=== PATIENT | female | born 1965 | race Caucasian/White ===

== ENCOUNTER 2016-12-10 13:10 | Inpatient (IN) | payer MEDICAID, OTHER ==
[~2016-12-10] VITALS: Ht 175.3 cm; Wt 97.3 kg
[~2016-12-10 13:10] MED LIST: ATOR40TA49 PO; B COTAB6; HYDRO25 PO; MELA5TAB8 OR; NOVO7030P2 SQ; NOVOLOGP2 SQ; OMEG100037; PRIN5TAB PO; PROZ20CA11 PO; QUET200XR PO
[2016-12-10 13:12] VITALS: BP 220/98; PULSE 93; RESP 20; TEMP 97.7; O2SAT 98
--- NOTE | 2016-12-10 13:29 | PD ---
Physical Exam Date Seen by Provider: December 10, 2016 Time Seen by Provider: 13:25 Narrative 51 YOWF WITH L DIABETIC FOOT ULCER. BGL 279. CONCERN OVER WORSEN INFECTED ULCER. PAIN 10/10 H/O CAD AND CABG. NO CP, NO N/V. NO F/C. VS NOTED wating for bed asignment Data Data Last Documented VS Vital Signs Date Time Temp Pulse Resp B/P Pulse Ox O2 Delivery O2 Flow Rate FiO2 12/10/16 13:12 97.7 93 20 220/98 98 Room Air [facility] Medical Record Reviewed: No Supervised Visit with STEVE: Demario Stanley December 10, 2016 13:29
[2016-12-10] MEDS ORDERED: CLINDAMYCIN INJ 900 MG in SODIUM CHLORIDE 0.9% INJ 100 ML IV ONE (15:15)
--- NOTE | 2016-12-10 15:25 | PD ---
HPI Chief Complaint: Skin Problem Time Seen by Provider: 14:54 Travel History International Travel<30 days: No Contact w/Intl Traveler<30days: No Traveled to known affect area: No History of Present Illness HPI 51-year-old female arrives with pain about the left foot. She has undergone amputation of the second and third digits of the left foot evidently due to osteomyelitis and cellulitis previously. In the middle portion of the left foot there is an open wound draining some clear discharge and surrounded by fibrinous exudate. The wounds are tender. She's had no fever. She states the pain is 10 over 10. Amputations were done by a editing internship in [place]. Similar prior episodes led to a diagnosis of osteomyelitis. PFSH Past Medical History Blood Disorders: No Anxiety: Yes Depression: Yes Cancer: No Cardiovascular Problems: Yes (QUAD BYPASS MAR 2016) High Cholesterol: Yes Diabetes: Yes Patient Takes Glucophage: No Diminished Hearing: No Endocrine: Yes Gastrointestinal Disorders: No Genitourinary: No Headaches: No Hypertension: Yes Immune Disorder: No Implanted Vascular Access Dvce: No Musculoskeletal: No Neurologic: No Psychiatric: Yes (Reported history of depression, anxiety and personality disorders) Reproductive: No Respiratory: No Seizures: No ?: Not Menopausal: Yes : 4 Para: 3 Dilation and Curettage (D&C): Yes Past Surgical History Section: Yes (X 1) Coronary Artery Bypass Graft: Yes (2016) Gynecologic Surgery: Yes (C section) Other Surgery: Yes (lt foot diabetic ulcer) Social History Alcohol Use: No Tobacco Use: Yes (4-5 pd) Substance Use: Yes (current marijuana, hx cocaine abuse (10 years ago), etoh ( 5 years ago)) Allergies-Medications (Allergen,Severity, Reaction): Coded Allergies: Abilify (Verified Allergy, Severe, 12/10/16) Buspar (Verified Allergy, Severe, Nausea/Vomiting, 12/10/16) Sulfa (Verified Allergy, Unknown, 12/10/16) Benadryl (Verified Adverse Reaction, Severe, 12/10/16) PATIENT STATES." IT HAS OPPOSITE AFFECT. IT MAKES ME SPEEDY, MORE AWAKE. IT MAKES MY SCALP FEEL TINGLY." PATIENT STATES "I DON'T TAKE ANITHISTAMINES BECAUSE THEY HAVE AN OPPOSITE EFFECT THAN WHAT THEY'REV SUPPOSE TO HAVE." Uncoded Allergies: ALOE VERA (Adverse Reaction, Severe, RASH, 10/01/09) Reported Meds & Prescriptions Reported Meds & Active Scripts Active Reported [place]-3-6-9 ([place] 3 Fatty Acids-[place] 6 FA) 1 Cap Cap 1 Cap PO TID Novolin 70-30 Inj (Insulin Human Isoph/Insulin Regular) 1,000 Unit/10 Ml Vial 15 Units SQ HS Metoprolol Tartrate 25 Mg Tab 12.5 Mg PO BID [place] Carbonate ER ([place] Carbonate) 450 Mg Tab 450 Mg PO BID Levothyroxine (Levothyroxine Sodium) 50 Mcg Tab 50 Mcg PO DAILY Levaquin (Levofloxacin) 750 Mg Tab 750 Mg PO DAILY Humulin N Inj (Insulin Human NPH) 1,000 Unit/10 Ml Vial 30 Units SQ DAILY Diflucan (Fluconazole) 200 Mg Tab 200 Mg PO DAILY Gabapentin 100 Mg Cap 200 Mg PO QID Ferrous Sulfate 325 Mg Tab 325 Mg PO BID Lexapro (Escitalopram Oxalate) 10 Mg Tab 10 Mg PO DAILY Colace (Docusate Sodium) 100 Mg Cap 100 Mg PO BID Plavix (Clopidogrel Bisulfate) 75 Mg Tab 75 Mg PO DAILY Lipitor (Atorvastatin Calcium) 40 Mg Tab 40 Mg PO HS Aspirin Adult Low Strength (Aspirin) 81 Mg Tabdr 81 Mg PO DAILY Review of Systems Except as stated in HPI: all other systems reviewed are Neg Skin: Positive Other (wound) Physical Exam Narrative GENERAL: 51 yo F, WNWD, pleasant SKIN: Warm and dry. HEAD: Atraumatic. Normocephalic. EYES: Pupils equal and round. No scleral icterus. No injection or drainage. ENT: No nasal bleeding or discharge. Mucous membranes pink and moist. NECK: Trachea midline. No JVD. CARDIOVASCULAR: Regular rate and rhythm. RESPIRATORY: No accessory muscle use. Clear to auscultation. Breath sounds equal bilaterally. GASTROINTESTINAL: Abdomen soft, non-tender, nondistended. Hepatic and splenic margins not palpable. MUSCULOSKELETAL: Extremities without clubbing, cyanosis, or edema. No obvious deformities. NEUROLOGICAL: Awake and alert. No obvious cranial nerve deficits. Motor grossly within normal limits. L foot s/p amputation 2nd and 3rd digits with minimal tenderness, fibrinous exudate and clear discharge; no purulent discharge. WIthin the middle portion of the L mid foot there is approx 2x wide by 5cm long area of similar wound fibrinous exudate clear discharge and minimal tenderness. There is no gross erythematous change or warmth in the area. PSYCHIATRIC: Appropriate mood and affect; insight and judgment normal. Data Data Last Documented VS Vital Signs Date Time Temp Pulse Resp B/P Pulse Ox O2 Delivery O2 Flow Rate FiO2 12/10/16 13:12 97.7 93 20 220/98 98 Room Air Vital signs reviewed Orders Basic Metabolic Panel (Bmp) (12/10/16 15:05) Complete Blood Count With Diff (12/10/16 15:05) Blood Culture (12/10/16 15:05) Wound Culture And Gram Stain (12/10/16 15:05) Iv Access Insert/Monitor (12/10/16 15:05) Wound Care (12/10/16 15:05) Clindamycin Inj (Cleocin Inj) (12/10/16 15:15) Foot, Complete ([id number]) (12/10/16 ) Sodium Chlor 0.9% 1000 Ml Inj (Ns 1000 M (12/10/16 15:30) Acetamin-Hydrocod 325-5 Mg ([place] 5-325 (12/10/16 15:45) Admit Order (Ed Use Only) (12/10/16 16:43) Labs Laboratory Tests Test 12/10/16 15:10 White Blood Count 5.0 TH/MM3 Red Blood Count 4.02 MIL/MM3 Hemoglobin 11.7 GM/DL Hematocrit 35.2 % Mean Corpuscular Volume 87.7 FL Mean Corpuscular Hemoglobin 29.0 PG Mean Corpuscular Hemoglobin 33.1 % Concent Red Cell Distribution Width 16.6 % Platelet Count 296 TH/MM3 Mean Platelet Volume 8.9 FL Neutrophils (%) (Auto) 52.6 % Lymphocytes (%) (Auto) 34.5 % Monocytes (%) (Auto) 8.8 % Eosinophils (%) (Auto) 2.7 % Basophils (%) (Auto) 1.4 % Neutrophils # (Auto) 2.7 TH/MM3 Lymphocytes # (Auto) 1.7 TH/MM3 Monocytes # (Auto) 0.4 TH/MM3 Eosinophils # (Auto) 0.1 TH/MM3 Basophils # (Auto) 0.1 TH/MM3 CBC Comment DIFF FINAL Differential Comment Sodium Level 137 MEQ/L Potassium Level 4.0 MEQ/L Chloride Level 101 MEQ/L Carbon Dioxide Level 29.9 MEQ/L Anion Gap 6 MEQ/L Blood Urea Nitrogen 18 MG/DL Creatinine 0.94 MG/DL Estimat Glomerular Filtration 62 ML/MIN Rate Random Glucose 301 MG/DL Calcium Level 9.8 MG/DL MDM Medical Decision Making Medical Screen Exam Complete: Yes Emergency Medical Condition: Yes Differential Diagnosis Osteomyelitis, cellulitis, abscess Narrative Course CBC & BMP Diagram 12/10/16 15:10 FOOT XRAY: possible osteomyelitis distal second metatarsal d/w Dr Harris. 2 wound cultures obtained. Clindamycin started. Diagnosis Primary Impression: Wound, open, foot Qualified Code: S91.302D - Wound, open, foot, left, subsequent encounter Admitting Information Admitting Physician Requests: Admit Evens Olson MD December 10, 2016 15:25
[2016-12-10] MEDS ORDERED: SODIUM CHLOR 0.9% 1000 ML INJ 1,000 ML IV ONE (15:30)
[2016-12-10] MEDS ORDERED: ACETAMINOPHEN/HYDROcodone 325 MG/5 MG TAB PO ONE (15:45)
[2016-12-10 15:46] LABS: AUTOMATED NEUTROPHIL # 2.7 TH/MM3 (1.8-7.7); BASOPHIL # 0.1 TH/MM3 (0-0.2); BASOPHIL % 1.4 % (0.0-2.0); EOSINOPHIL # 0.1 TH/MM3 (0-0.4); EOSINOPHIL % 2.7 % (0.0-4.0); HEMATOCRIT 35.2 % (35.0-46.0); HEMO FLAGS DIFF FINAL; LYMPH % 34.5 % (9.0-44.0); LYMPHOCYTE # 1.7 TH/MM3 (1.0-4.8); MEAN CELL VOLUME 87.7 FL (80.0-100.0); MEAN CORPUSCULAR HGB CONC 33.1 % (32.0-36.0); MONO % 8.8 % (0.0-8.0); NEUT % 52.6 % (16.0-70.0); PLATELET COUNT 296 TH/MM3 (150-450); RED BLOOD COUNT 4.02 MIL/MM3 (4.00-5.30); RED CELL DISTRIBUTION WIDTH 16.6 % (11.6-17.2)
--- NOTE | 2016-12-10 15:55 | RADRPT ---
EXAM DATE/TIME: 12/10/2016 15:47 [facility] COMPARISON: No previous studies available for comparison. INDICATIONS : Ulceration on plantar surface of left foot for two months MEDICAL HISTORY : Diabetes mellitus type II. SURGICAL HISTORY : 2nd and 3rd digit amputation ENCOUNTER: Initial ACUITY: 2 months PAIN SCORE: 10/10 LOCATION: Left plantar surface FINDINGS: There has been previous resection of the second and third digits. There is mild irregu larity about the head of the second metatarsal. Tarsals are intact. CONCLUSION: 1. Evidence for a previous surgery. 2. Osteomyelitis distal second metatarsal cannot be excluded. Francisco Torres MD FACR on December 10, 2016 at 15:51 Board Certified Radiologist. This report was verified electronically.
[2016-12-10 16:09] LABS: BICARBONATE 29.9 MEQ/L (21.0-32.0)
[2016-12-10] MEDS ORDERED: ASPI1TAB91 PO (16:33)
[2016-12-10] MEDS ORDERED: METO25TA3 PO (16:33)
[2016-12-10] MEDS ORDERED: OMEG1200 PO (16:33)
[2016-12-10] MEDS ORDERED: PLAV75TA29 PO (16:33)
[2016-12-10] MEDS ORDERED: GABA100C4 PO (16:33)
[2016-12-10] MEDS ORDERED: COLA100C3 PO (16:33)
[2016-12-10] MEDS ORDERED: LEXA10TA PO (16:33)
[2016-12-10] MEDS ORDERED: NOVO7030P2 SQ (16:33)
[2016-12-10] MEDS ORDERED: LITH450T PO (16:33)
[2016-12-10] MEDS ORDERED: LEVA750T PO (16:33)
[2016-12-10] MEDS ORDERED: FERR325T PO (16:33)
[2016-12-10] MEDS ORDERED: LIPI40TA PO (16:33)
[2016-12-10] MEDS ORDERED: INSU100V3 SQ (16:33)
[2016-12-10] MEDS ORDERED: LEVO50TA4 PO (16:33)
[2016-12-10] MEDS ORDERED: DIFL200T PO (16:33)
[2016-12-10] MEDS: SODIUM CHLOR 0.9% 1000 ML INJ 1,000 ML IV SCH (16:52)
--- NOTE | 2016-12-10 16:55 | HHI.HP ---
HPI Service [facility] Primary Care Physician No Primary Care Physician Admission Diagnosis Diabetic L Foot Wound; Poss L Foot Osteo Diagnoses: Chief Complaint: pain in her feet Travel History International Travel<30 Days: No Contact w/Intl Traveler <30 Da: No Traveled to Known Affected Are: No History of Present Illness 51-year-old female with past medical history of diabetes, hypertension, CAD, hyperlipidemia, chronic foot ulcers, probably noncompliant with medications into the emergency room for evaluation of left foot diabetic ulcers getting for the last 2 months . She also reports associated fevers. Follows with podiatry as outpatient and she is also taking Levaquin by mouth. Since pain is worse since yesterday, she noticed some discharge the third digit of the left foot, also order is worse. She has undergone amputation of the second and third digits of the left foot evidently due to osteomyelitis and cellulitis previously. In the middle portion of the left foot there is an open wound draining some clear discharge and surrounded by fibrinous exudate. The wounds are tender. She's had no fever. She states the pain is 10 over 10. Amputations were done by a internet technology manager in [place]. Similar prior episodes led to a diagnosis of osteomyelitis. Denies chest pain, shortness of breath, nausea, diaphoresis, lightheadedness, patient's. No abdominal pain. Has normal bowel movements. Review of Systems Except as stated in HPI: all other systems reviewed are Neg Past Family Social History Past Medical History Diabetes, hypertension, hyperlipidemia, coronary artery disease, chronic foot ulcers Past Surgical History Quadruple bypass 2016 Left second digit amputation with incision and drainage of foot Allergies: Coded Allergies: Abilify (Verified Allergy, Severe, 12/10/16) Buspar (Verified Allergy, Severe, Nausea/Vomiting, 12/10/16) Sulfa (Verified Allergy, Unknown, 12/10/16) Benadryl (Verified Adverse Reaction, Severe, 12/10/16) PATIENT STATES." IT HAS OPPOSITE AFFECT. IT MAKES ME SPEEDY, MORE AWAKE. IT MAKES MY SCALP FEEL TINGLY." PATIENT STATES "I DON'T TAKE ANITHISTAMINES BECAUSE THEY HAVE AN OPPOSITE EFFECT THAN WHAT THEY'REV SUPPOSE TO HAVE." Uncoded Allergies: ALOE VERA (Adverse Reaction, Severe, RASH, 10/01/09) Family History Hypertension Social History Smoking currently for 5 cigarettes per day used to smoke 1 pack per day Denies alcohol use or illicit drug use Physical Exam Vital Signs Vital Signs Date Time Temp Pulse Resp B/P Pulse Ox O2 Delivery O2 Flow Rate FiO2 12/10/16 13:12 97.7 93 20 220/98 98 Room Air Physical Exam GENERAL: This is a well-nourished, well-developed patient, in no apparent distress. SKIN: No rashes, ecchymoses or lesions. Cool and dry. HEAD: Atraumatic. Normocephalic. No temporal or scalp tenderness. EYES: Pupils equal round and reactive. Extraocular motions intact. No scleral icterus. No injection or drainage. ENT: Nose without bleeding, purulent drainage or septal hematoma. Throat without erythema, tonsillar hypertrophy or exudate. Uvula midline. Airway patent. NECK: Trachea midline. No JVD or lymphadenopathy. Supple, nontender, no meningeal signs. CARDIOVASCULAR: Regular rate and rhythm without murmurs, gallops, or rubs. RESPIRATORY: Clear to auscultation. Breath sounds equal bilaterally. No wheezes , rales, or rhonchi. GASTROINTESTINAL: Abdomen soft, non-tender, nondistended. No hepato-splenomegaly , or palpable masses. No guarding. MUSCULOSKELETAL: There is a 2 cm lesion on the second amputated foot on the left red, with some discharge . Fissure on left plantar region . Vascular intact. Negative Homans sign bilaterally. NEUROLOGICAL: Awake and alert. Cranial nerves II through XII intact. Motor and sensory grossly within normal limits. Five out of 5 muscle strength in all muscle groups. Normal speech. Laboratory Laboratory Tests Test 12/10/16 15:10 White Blood Count 5.0 Red Blood Count 4.02 Hemoglobin 11.7 Hematocrit 35.2 Mean Corpuscular Volume 87.7 Mean Corpuscular Hemoglobin 29.0 Mean Corpuscular Hemoglobin 33.1 Concent Red Cell Distribution Width 16.6 Platelet Count 296 Mean Platelet Volume 8.9 Neutrophils (%) (Auto) 52.6 Lymphocytes (%) (Auto) 34.5 Monocytes (%) (Auto) 8.8 Eosinophils (%) (Auto) 2.7 Basophils (%) (Auto) 1.4 Neutrophils # (Auto) 2.7 Lymphocytes # (Auto) 1.7 Monocytes # (Auto) 0.4 Eosinophils # (Auto) 0.1 Basophils # (Auto) 0.1 CBC Comment DIFF FINAL Differential Comment Sodium Level 137 Potassium Level 4.0 Chloride Level 101 Carbon Dioxide Level 29.9 Anion Gap 6 Blood Urea Nitrogen 18 Creatinine 0.94 Estimat Glomerular Filtration 62 Rate Random Glucose 301 Calcium Level 9.8 Date/Time Procedure Status Source Growth 12/10/16 15:15 Aerobic Blood Culture Received Blood Peripheral Pending 12/10/16 15:15 Anaerobic Blood Culture Received Blood Peripheral Pending 12/10/16 15:10 Gram Stain Received Wound Foot Pending 12/10/16 15:10 Wound Culture Received Wound Foot Pending Result Diagram: 12/10/16 1510 12/10/16 1510 Imaging Last Impressions Foot X-Ray 12/10/16 0000 Signed Impressions: Service Date/Time: Saturday, December 10, 2016 15:47 - CONCLUSION: 1. Evidence for a previous surgery. 2. Osteomyelitis distal second metatarsal cannot be excluded. Francisco Torres MD FACR Assessment and Plan Assessment and Plan Pleasant 51-year-old female with Diabetic foot possible osteomyelitis Started Zosyn and vancomycin IV Consult podiatry for further evaluation Plan for MRI of the left foot Seen by podiatry Dr. Church possible surgery in 1 or 2 days Coronary artery disease. Continue home medications. She is taking Plavix and aspirin, podiatry to decide if holding these medications prior to surgery Hypertension. Uncontrolled. Restart home medications. Monitor and increase dose of home medications if needed. Vasotec IV as needed when necessary. Hydralazine by mouth as needed. Diabetes mellitus insulin-dependent. We'll check A1c. Diabetes seems is uncontrolled. Insulin sliding scale, Accu-Cheks Hyperlipidemia. Continue statin DVT prophylaxis Lovenox Discussed Condition With Patient, nurse, ED physician Physician Certification 2 Midnight Certification Type: Admission for Inpatient Services Order for Inpatient Services The services are ordered in accordance with Medicare regulations or non- Medicare payer requirements, as applicable. In the case of services not specified as inpatient-only, they are appropriately provided as inpatient services in accordance with the 2-midnight benchmark. Estimated LOS (days): 5 days is the estimated time the patient will need to remain in the hospital, assuming treatment plan goals are met and no additional complications. Post-Hospital Plan: Not yet determined Marine Harris MD December 10, 2016 16:55
[2016-12-10] MEDS ORDERED: Vancomycin Consult Pharmacy 1 EA OTHER SCH (17:00)
[2016-12-10] MEDS ORDERED: GLUCAGON 1 MG/ML VIAL OTHER PRN ×2 (17:00→19:30)
[2016-12-10] MEDS ORDERED: SODIUM CHLORIDE 0.9% FLUSH 10 ML FLUSH IV FLUSH PRN (17:00)
[2016-12-10] MEDS ORDERED: ACETAMINOPHEN 325 MG TAB PO PRN (17:00)
[2016-12-10] MEDS ORDERED: DEXTROSE 50% IN WATER 50 ML VIAL(D50) IV PUSH PRN ×2 (17:00→19:30)
[2016-12-10] MEDS ORDERED: ONDANSETRON HCL 4 MG/2 ML VIAL IVP PRN (17:00)
[2016-12-10] MEDS ORDERED: FATTY ACIDS OMEGA PO SCH (18:00)
[2016-12-10] MEDS ORDERED: OMEGA FA PO SCH (18:00)
[2016-12-10] MEDS: DOCUSATE SODIUM 100 MG CAP PO SCH (18:21)
[2016-12-10] MEDS: GABAPENTIN 100 MG CAP PO SCH ×2 (18:21→21:51)
[2016-12-10] MEDS: VANCOMYCIN INJ 1,000 MG in SODIUM CHLOR 0.9% 250 ML INJ 250 ML IV SCH (18:23)
[2016-12-10] MEDS: ENOXAPARIN SODIUM 40 MG/0.4 ML SYRINGE SQ SCH (18:23)
[2016-12-10 19:03] LABS: LDL CHOLESTEROL 159 MG/DL (0-99)
--- NOTE | 2016-12-10 19:17 | MB ---
cc: DANIELLE GONZALEZ DPM DATE OF CONSULTATION: 12/10/2016. REASON FOR CONSULTATION: Left foot ulcer, likely osteomyelitis second metatarsal. HISTORY OF PRESENT ILLNESS: This is a 51-year-old diabetic female with a history of left foot infection, ulcer and gangrene of the second digit. She is status post amputation from Dr. Callahan two months ago. The patient has been following along; however, has noticed increased redness, pain and swelling. She opted to follow up at [place] and she was not improving at [facility]. The patient is currently seen bedside. She takes diabetic medications but she is uninsured and she is not aware of her last hemoglobin A1c and she does not follow along with a primary care doctor. PAST MEDICAL HISTORY: Her past medical history is positive for: 1. Depression. 2. Anxiety. 3. Quadruple bypass March of 2016. 4. High cholesterol. 5. Diabetes with peripheral neuropathy. 6. Hypertension. PAST SURGICAL HISTORY: As previously stated: 1. Coronary artery bypass graft in 2016. 2. Left second digit amputation with incision and drainage of foot. SOCIAL HISTORY: The patient smokes four to five cigarettes per day. History of cocaine abuse ten years ago. Alcohol abuse five years ago and current marijuana. ALLERGIES: CODED ALLERGIES ARE: 1. ABILIFY. 2. BUSPAR. 3. SULFA. 4. BENADRYL. UNCODED ALLERGIES: 1. AGUSTIN VERA. REPORTED OUTPATIENT MEDICATIONS: Reviewed. It does not appear that she was on any antibiotics other than Diflucan. INPATIENT MEDICATIONS: The patient is receivin. Levaquin. 2. Vancomycin. 3. Zosyn. 4. Apparently received also clindamycin. PHYSICAL EXAMINATION: VITAL SIGNS: Temperature is 97.7, pulse rate is 93, respiratory rate is 16, blood pressure is 220/98. She is satting 98% on room air. GENERAL: This is an alert and oriented female seen bedside exhibiting nonlabored respirations. LEFT LOWER EXTREMITY: The left lower extremity is examined. There is noted be a fibrotic red serous draining wound at the level of the presumed second digit amputation site that appears to probe to joint capsule. At the plantar aspect of the foot, there is also a full-thickness wound that goes down to plantar fascia that has some granular tissue but overall it is mainly fibrotic. There is an irregular fissure of the posterior plantar heel but there is no drainage coming from the area. Sensation is significantly decreased below the patient's ankle. Sensation resumes proximal to the ankle. There is no crepitus or instability upon range of motion of digits forefoot, hindfoot or ankle. Pedal pulses are readily palpable. There is no obvious ulcer of the contralateral extremity. LABORATORY FINDINGS: White blood cell is 5, hemoglobin/hematocrit 11 and 35, platelet count is 296,000. Chem-7: Sodium is 137, potassium 4.0, chloride 101, CO2 is 29.9, BUN is 18, creatinine 0.94, random glucose is 301, hemoglobin A1c is pending. IMAGING STUDIES: Imaging findings are consistent with osteomyelitis of the second metatarsal head. MRI has been ordered. ASSESSMENT: Left diabetic foot ulcer with possible deeper infection osteomyelitis second metatarsal. PLAN: The plan is to await MRI to determine the extent of possible bone infection. I do feel the patient may need to be evaluated in greater detail via medicine and possibly cardiology before going under anesthesia given the cardiac history. The patient's blood pressure needs to be regulated as well as hyperglycemic control. I will attempt surgery within next one to two days but if she continues to have elevated blood pressure and poor glucose control, we may need optimize the patient before we move forward with a possible definitive surgical correction including possible second metatarsal resection. The patient's vascular status appears to be within normal limits but I do question her outpatient hyperglycemic control. We also need to discuss and address the patient's smoking for this inhibits wound healing directly. I will follow along with the patient within next one to two days pending MRI. MARY Stephenson/DRISS /6:51 PM /7:00 PM
[2016-12-10 20:00] VITALS: BP 146/67; PULSE 68; RESP 18; TEMP 97; O2SAT 100
[2016-12-10] MEDS ORDERED: DOCUSATE SODIUM 100 MG CAP PO SCH (21:00)
[2016-12-10] MEDS ORDERED: INSULIN HUMAN NPH/R 70/30 1,000 UNITS/10 ML VIAL SQ SCH (21:00)
[2016-12-10] MEDS: INSULIN ASPART SUPPLEMENTAL SCALE SQ SCH ×2 (21:00→21:54)
[2016-12-10 21:39] LABS: HEMOGLOBIN A1a 1.1 %; HEMOGLOBIN A1b 0.9 %; HEMOGLOBIN Ao 78.7 %; HEMOGLOBIN F 1.4 %; HEMOGLOBIN LA1C 3.9 %; HEMOGLOBIN P3 6.6 %
[2016-12-10] MEDS ORDERED: ACETAMINOPHEN/HYDROcodone 325 MG/5 MG TAB PO PRN (21:45)
[2016-12-10] MEDS ORDERED: ALPRAZolam 0.25 MG TAB PO ONE (21:45)
[2016-12-10] MEDS: ACETAMINOPHEN/HYDROcodone 325 MG/10 MG TAB PO PRN (21:50)
[2016-12-10] MEDS: FERROUS SULFATE 325 MG (65 MG ELEMENTAL IRON) TAB PO SCH (21:51)
[2016-12-10] MEDS: ATORVASTATIN 40 MG TAB PO SCH (21:51)
[2016-12-10] MEDS: METOPROLOL TARTRATE 25 MG TAB PO SCH (21:51)
[2016-12-10] MEDS: LITHIUM CARBONATE 450 MG CONTROLLED RELEASE TAB PO SCH (21:51)
[2016-12-10] MEDS: PIPERACIL-TAZO 4.5 GM PREMIX 100 ML IV SCH (21:52)
[2016-12-10] MEDS: SODIUM CHLORIDE 0.9% FLUSH 10 ML FLUSH IV FLUSH SCH (21:52)
--- NOTE | 2016-12-10 22:02 | RADRPT ---
EXAM DATE/TIME: 12/10/2016 20:00 [facility] COMPARISON: FOOT LEFT COMPLETE ([id number]), December 10, 2016, 15:47. INDICATIONS : Osteomyelitis. CONTRAST: 16 cc Omniscan (gadodiamide) IV MEDICAL HISTORY : Hypertension. Diabetes mellitus type 1. Hypercholesterolemia. SURGICAL HISTORY : section. CABG Lower extremity stent placement. 2nd and 3rd digit removed from left loot. ENCOUNTER: Subsequent ACUITY: 2 months PAIN SCORE: 3/10 LOCATION: Left foot TECHNIQUE: Multiplanar, multisequence MRI examination was performed without contrast and after the intravenous a dministration of gadolinium. FINDINGS: There is abnormal marrow signal involving the second and third metatarsal head and neck regions consi stent with osteomyelitis. There is adjacent soft tissue cellulitis and abscess at previous amputation site. There is extensive destructive change and marrow signal change involving the calcaneus, also c onsistent with osteomyelitis associated with what appears to be a penetrating ulcer on the plantar as pect of the heel. CONCLUSION: Osteomyelitis involving the second at the end third metatarsals distally as well as the calcaneus. Christofer Dunbar MD on December 10, 2016 at 21:55 Board Certified Radiologist. This report was verified electronically.
[2016-12-10] MEDS ORDERED: GADODIAMIDE PF 287 MG/ML 5 ML VIAL (for RAD MRI) IV ONE (22:52)
[2016-12-10 23:53] VITALS: BP 147/69; PULSE 75; RESP 19; TEMP 96; O2SAT 100
[2016-12-11] MEDS: VANCOMYCIN INJ 1,000 MG in SODIUM CHLOR 0.9% 250 ML INJ 250 ML IV SCH (04:56)
[2016-12-11] MEDS: PIPERACIL-TAZO 4.5 GM PREMIX 100 ML IV SCH ×5 (04:56→23:19)
[2016-12-11] MEDS: ACETAMINOPHEN/HYDROcodone 325 MG/10 MG TAB PO PRN ×2 (04:57→08:44)
[2016-12-11] MEDS: LEVOTHYROXINE SODIUM 50 MCG TAB PO SCH (04:57)
[2016-12-11] MEDS: DOCUSATE SODIUM 100 MG CAP PO SCH ×2 (04:57→16:39)
[2016-12-11] MEDS: SODIUM CHLOR 0.9% 1000 ML INJ 1,000 ML IV SCH ×3 (04:57→20:39)
[2016-12-11] MEDS: INSULIN ASPART SUPPLEMENTAL SCALE SQ SCH ×6 (06:34→20:41)
[2016-12-11 07:40] LABS: ALKALINE PHOSPHATASE 114 U/L (45-117); ALT (GPT) 25 U/L (10-53); ANION GAP 6 MEQ/L (5-15); AST (GOT) 29 U/L (15-37); BICARBONATE 25.8 MEQ/L (21.0-32.0); BLOOD UREA NITROGEN 16 MG/DL (7-18); CHLORIDE 107 MEQ/L (98-107); GLOMERULAR FILTRATION RATE 75 ML/MIN (>89); POTASSIUM 4.3 MEQ/L (3.5-5.1); SODIUM (NA) 139 MEQ/L (136-145); TOTAL BILIRUBIN ADULT 0.3 MG/DL (0.2-1.0)
--- NOTE | 2016-12-11 07:52 | PD.POD ---
Subjective Pain score: 2 Remarks Rest well, pain is intermittent Past Med/Surg/Social History Social History Smoking Status: Current Every Day Smoker Objective Vital Signs Vital Signs Date Time Temp Pulse Resp B/P Pulse Ox O2 Delivery O2 Flow Rate FiO2 12/10/16 23:53 96.0 75 19 147/69 100 12/10/16 20:00 97.0 68 18 146/67 100 12/10/16 17:03 16 12/10/16 13:12 97.7 93 20 220/98 98 Room Air Coded Allergies: Abilify (Verified Allergy, Severe, 12/10/16) Buspar (Verified Allergy, Severe, Nausea/Vomiting, 12/10/16) Sulfa (Verified Allergy, Unknown, 12/10/16) Benadryl (Verified Adverse Reaction, Severe, 12/10/16) PATIENT STATES." IT HAS OPPOSITE AFFECT. IT MAKES ME SPEEDY, MORE AWAKE. IT MAKES MY SCALP FEEL TINGLY." PATIENT STATES "I DON'T TAKE ANITHISTAMINES BECAUSE THEY HAVE AN OPPOSITE EFFECT THAN WHAT THEY'REV SUPPOSE TO HAVE." Fentanyl (Verified Adverse Reaction, Severe, 12/10/16) hallucications Uncoded Allergies: ALOE VERA (Adverse Reaction, Severe, RASH, 10/01/09) Medications and IVs Administered Medications Medications (Trade) Dose Ordered Sig/Vanesa Route PRN Reason Start Time Stop Time Status Last Admin Dose Admin Sodium Chloride (NS 1000 ml Inj) 1,000 ml @ 100 mls/hr Q10H IV 12/10/16 16:52 12/11/16 04:57 Sodium Chloride (NS Flush) 2 ml BID IV FLUSH 12/10/16 21:00 12/10/16 21:52 Docusate Sodium (Colace) 100 mg Q12H PO 12/10/16 17:00 12/11/16 04:57 Enoxaparin Sodium 40 mg 40 mg Q24H SQ 12/10/16 18:00 12/10/16 18:23 Vancomycin HCl 1000 mg/Sodium Chloride 250 ml @ 250 mls/hr Q12H IV 12/10/16 18:00 12/11/16 04:56 Piperacillin Sod/ Tazobactam Sod (Zosyn 4.5 Gm Premix) 100 ml @ 200 mls/hr Q6H IV 12/10/16 18:00 12/11/16 04:56 Atorvastatin Calcium (Lipitor) 40 mg HS PO 12/10/16 21:00 12/10/16 21:51 Ferrous Sulfate (Ferrous Sulfate) 325 mg BID PO 12/10/16 21:00 12/10/16 21:51 Gabapentin (Neurontin) 200 mg QID PO 12/10/16 18:00 12/10/16 21:51 Insulin Human Isoph/Insulin Regular (NovoLIN 70/30 INJ) 15 units HS SQ 12/10/16 21:00 12/10/16 21:54 Levothyroxine Sodium (Synthroid) 50 mcg DAILY@06 PO 12/11/16 06:00 12/11/16 04:57 [place] Carbonate (Eskalith Sr) 450 mg BID PO 12/10/16 21:00 12/10/16 21:51 Metoprolol Tartrate (Lopressor) 12.5 mg BID PO 12/10/16 21:00 12/10/16 21:51 Acetaminophen/ Hydrocodone Bitart ([place] 10-325 Mg) 1 tab Q4H PRN PO paion 512/10/16 21:45 12/11/16 04:57 Other Results Laboratory Tests Test 12/10/16 15:10 White Blood Count 5.0 TH/MM3 Red Blood Count 4.02 MIL/MM3 Hemoglobin 11.7 GM/DL Hematocrit 35.2 % Mean Corpuscular Volume 87.7 FL Mean Corpuscular Hemoglobin 29.0 PG Mean Corpuscular Hemoglobin 33.1 % Concent Red Cell Distribution Width 16.6 % Platelet Count 296 TH/MM3 Mean Platelet Volume 8.9 FL Neutrophils (%) (Auto) 52.6 % Lymphocytes (%) (Auto) 34.5 % Monocytes (%) (Auto) 8.8 % Eosinophils (%) (Auto) 2.7 % Basophils (%) (Auto) 1.4 % Neutrophils # (Auto) 2.7 TH/MM3 Lymphocytes # (Auto) 1.7 TH/MM3 Monocytes # (Auto) 0.4 TH/MM3 Eosinophils # (Auto) 0.1 TH/MM3 Basophils # (Auto) 0.1 TH/MM3 CBC Comment DIFF FINAL Differential Comment Laboratory Tests Test 12/10/16 12/11/16 15:10 06:15 Sodium Level 137 MEQ/L 139 MEQ/L Potassium Level 4.0 MEQ/L 4.3 MEQ/L Chloride Level 101 MEQ/L 107 MEQ/L Carbon Dioxide Level 29.9 MEQ/L 25.8 MEQ/L Anion Gap 6 MEQ/L 6 MEQ/L Blood Urea Nitrogen 18 MG/DL 16 MG/DL Creatinine 0.94 MG/DL 0.80 MG/DL Estimat Glomerular Filtration 62 ML/MIN 75 ML/MIN Rate Random Glucose 301 MG/DL 211 MG/DL Hemoglobin A1c 8.8 % Calcium Level 9.8 MG/DL 9.2 MG/DL Triglycerides Level 64 MG/DL Cholesterol Level 236 MG/DL LDL Cholesterol 159 MG/DL HDL Cholesterol 64.0 MG/DL Cholesterol/HDL Ratio 3.68 RATIO Total Bilirubin 0.3 MG/DL Aspartate Amino Transf 29 U/L (AST/SGOT) Alanine Aminotransferase 25 U/L (ALT/SGPT) Alkaline Phosphatase 114 U/L Total Protein 6.8 GM/DL Albumin 3.0 GM/DL Microbiology Date/Time Procedure Status Source Growth 12/10/16 15:10 Aerobic Blood Culture Received Blood Peripheral Pending 12/10/16 15:10 Anaerobic Blood Culture Received Blood Peripheral Pending 12/10/16 15:10 Gram Stain Received Wound Foot Pending 12/10/16 15:10 Wound Culture Received Wound Foot Pending 12/10/16 15:15 Aerobic Blood Culture Received Blood Peripheral Pending 12/10/16 15:15 Anaerobic Blood Culture Received Blood Peripheral Pending Last 72 hours Impressions Foot X-Ray 12/10/16 0000 Signed Impressions: Service Date/Time: Saturday, December 10, 2016 15:47 - CONCLUSION: 1. Evidence for a previous surgery. 2. Osteomyelitis distal second metatarsal cannot be excluded. Francisco Torres MD FACR Foot MRI 12/10/16 0000 Signed Impressions: Service Date/Time: Saturday, December 10, 2016 20:00 - CONCLUSION: Osteomyelitis involving the second at the end third metatarsals distally as well as the calcaneus. Christofer Dunbar MD Physical Exam Remarks LEFT LOWER EXTREMITY: The left lower extremity is examined. There is noted be a fibrotic red serous draining wound at the level of the presumed second digit amputation site that appears to probe to joint capsule. At the plantar aspect of the foot, there is also a full-thickness wound that goes down to plantar fascia that has some granular tissue but overall it is mainly fibrotic. There is an irregular fissure of the posterior plantar heel but there is no drainage coming from the area. Sensation is significantly decreased below the patient's ankle. Sensation resumes proximal to the ankle. There is no crepitus or instability upon range of motion of digits forefoot, hindfoot or ankle. Pedal pulses are readily palpable. There is no obvious ulcer of the contralateral extremity. Assessment & Plan A/P Left foot ulcer OM 2 3 metatarsal and calcaneus. MRI is concerning for near entire involvement of the calcaneus as well distal metatarsals. Given this extent a calcanectomy is indicated however will leave the patient unable to walk, BKA is the likely best option joint terminal attack controller for the patient. I plan on biopsying the calcaneus and removing the the infected metatarsals for now however if calc comes back positive, I will likely recommend BKA for better joint terminal attack controller function. Patient wished to not go for BKA but understands may be needed. NPO after MN for surgery tomorrow. Hold plavix Avery Church DPM December 11, 2016 07:51
[2016-12-11 08:00] VITALS: BP 128/65; PULSE 79; RESP 19; TEMP 95.9; O2SAT 99
[2016-12-11] MEDS: LEVOFLOXACIN 750 MG TAB PO SCH (08:33)
[2016-12-11] MEDS: FERROUS SULFATE 325 MG (65 MG ELEMENTAL IRON) TAB PO SCH ×2 (08:33→20:38)
[2016-12-11] MEDS: ESCITALOPRAM OXALATE 10 MG TAB PO SCH (08:35)
[2016-12-11] MEDS: METOPROLOL TARTRATE 25 MG TAB PO SCH ×2 (08:35→20:38)
[2016-12-11] MEDS: GABAPENTIN 100 MG CAP PO SCH ×4 (08:35→20:39)
[2016-12-11] MEDS: SODIUM CHLORIDE 0.9% FLUSH 10 ML FLUSH IV FLUSH SCH ×2 (08:36→20:38)
[2016-12-11] MEDS: LITHIUM CARBONATE 450 MG CONTROLLED RELEASE TAB PO SCH ×2 (08:36→20:38)
[2016-12-11] MEDS: ASPIRIN EC 81 MG TABEC PO SCH (08:36)
[2016-12-11] MEDS: FLUCONAZOLE 200 MG TAB PO SCH (08:43)
[2016-12-11] MEDS ORDERED: CLOPIDOGREL 75 MG TAB PO SCH (09:00)
[2016-12-11] MEDS ORDERED: INSULIN HUMAN NPH SQ SCH (09:00)
--- NOTE | 2016-12-11 09:16 | HHI.PR ---
Subjective Remarks Says pain is not controlled by norco and wants something else. She si also very anxious and crying at times. Says she would not like to have amputation however she is considering it if necessary. Patient Also is telling me is very anxious and she is taking valium 10 mg at home. patient is asking for anxiety meds, says she is also having depression and severe anxiety. Will also consult psych . Otherwise no fever or chills overnight. No n/v/d/c. Objective Vitals Vital Signs Date Time Temp Pulse Resp B/P Pulse Ox O2 Delivery O2 Flow Rate FiO2 12/11/16 08:00 95.9 79 19 128/65 99 12/10/16 23:53 96.0 75 19 147/69 100 12/10/16 20:00 97.0 68 18 146/67 100 12/10/16 17:03 16 12/10/16 13:12 97.7 93 20 220/98 98 Room Air I/O 12/10/16 12/10/16 12/10/16 12/11/16 12/11/16 12/11/16 07:00 15:00 23:00 07:00 15:00 23:00 Intake Total 708 ml 1170 ml Output Total 1000 ml Balance 708 ml 170 ml Intake Oral 360 ml 240 ml IV Total 348 ml 930 ml Output Urine Total 1000 ml # Voids 1 1 # Bowel Movements 0 0 Result Diagram: 12/10/16 1510 12/11/16 0615 Imaging Last Impressions Foot X-Ray 12/10/16 0000 Signed Impressions: Service Date/Time: Saturday, December 10, 2016 15:47 - CONCLUSION: 1. Evidence for a previous surgery. 2. Osteomyelitis distal second metatarsal cannot be excluded. Francisco Torres MD FACR Foot MRI 12/10/16 0000 Signed Impressions: Service Date/Time: Saturday, December 10, 2016 20:00 - CONCLUSION: Osteomyelitis involving the second at the end third metatarsals distally as well as the calcaneus. Christofer Dunbar MD Objective Remarks GENERAL: This is a well-nourished, well-developed patient, in no apparent distress. SKIN: No rashes, ecchymoses or lesions. Cool and dry. HEAD: Atraumatic. Normocephalic. No temporal or scalp tenderness. EYES: Pupils equal round and reactive. Extraocular motions intact. No scleral icterus. No injection or drainage. ENT: Nose without bleeding, purulent drainage or septal hematoma. Throat without erythema, tonsillar hypertrophy or exudate. Uvula midline. Airway patent. NECK: Trachea midline. No JVD or lymphadenopathy. Supple, nontender, no meningeal signs. CARDIOVASCULAR: Regular rate and rhythm without murmurs, gallops, or rubs. RESPIRATORY: Clear to auscultation. Breath sounds equal bilaterally. No wheezes , rales, or rhonchi. GASTROINTESTINAL: Abdomen soft, non-tender, nondistended. No hepato-splenomegaly , or palpable masses. No guarding. MUSCULOSKELETAL: There is a 2 cm lesion on the second amputated foot on the left red, with some discharge . Fissure on left plantar region . Vascular intact. Negative Homans sign bilaterally. NEUROLOGICAL: Awake and alert. Cranial nerves II through XII intact. Motor and sensory grossly within normal limits. Five out of 5 muscle strength in all muscle groups. Normal speech. A/P Assessment and Plan Pleasant 51-year-old female with Diabetic foot possible osteomyelitis. Left foot ulcer OM 2 3 metatarsal and calcaneus. Started Zosyn and vancomycin IV Consult podiatry , appreciate recommendations Dr Church following MRI is concerning for near entire involvement of the calcaneus as well distal metatarsals. BKA is the likely best option welder apprentice arc for the patient per podiatry. Patient wished to not go for BKA but understands may be needed. Plan on biopsying the calcaneus and removing the the infected metatarsals for now however if calc comes back positive, BKA for better welder apprentice arc function is recommended by podiatry. Seen by podiatry Dr. Church. Keep NPO after MN, plan for surgery 12/12/16. Hold plavix. Coronary artery disease. Continue home medications. She is taking Plavix and aspirin, podiatry to decide if holding these medications prior to surgery Hypertension. Uncontrolled. Restart home medications. Monitor and increase dose of home medications if needed. Vasotec IV as needed when necessary. Hydralazine by mouth as needed. Diabetes mellitus insulin-dependent. We'll check A1c. Diabetes seems is uncontrolled. Insulin sliding scale, Accu-Cheks Hyperlipidemia. Continue statin Depression / anxiety now unstable. Restart home meds . Add ativan for anxiety/. Consult psych DVT prophylaxis Lovenox Discussed Condition With Patient, nurse Marine Harris MD December 11, 2016 09:16
[2016-12-11] MEDS ORDERED: LORazepam 1 MG TAB PO PRN (10:45)
[2016-12-11 12:00] VITALS: BP 144/64; PULSE 65; RESP 18; TEMP 96.6; O2SAT 100
--- NOTE | 2016-12-11 15:39 | PD.CONS ---
Provisional Diagnosis Admission Date December 10, 2016 at 16:45 [place] I. Schizoaffective disorder bipolar type f 20.0, anxiety disorder associated with panic attacks FO6.4 History of Present Illness Service Psychiatry Consult Requested By Attending Lamont Reason for Consult Assessment Primary Care Physician No Primary Care Physician HPI Patient is a 51 white female who did remind me when I introduced myself to her that I help care for her a number of years ago at the at [facility]. Patient admitted for treatment of peripheral diabetic issues with her feet possibility of amputations. Patient continues to see a clinician in the [facility] for treatment of her mental health issues that include mood, anxiety, and panic. She states she is on lithium and Celexa the when necessary Valium. States she has been cooperative successful being at home with her family little way of relapses, denying alcohol or drug use with this. She states she has done well with when necessary Valium elected to be placed on that instead of when necessary Ativan. Patient denies suicidality homicidality voices or visions patient is alert oriented calm cooperative and quite pleasant with me showing good insight into her issues. Thus I would recommend that it is okay by me to switch her from the when necessary Ativan to Valium 10 mg by mouth daily when necessary anxiety/ panic. Thanks for consult was sent off the present time Review of Systems Constitutional: DENIES: Diaphoretic episodes, Fatigue, Fever, Weight gain, Weight loss, Chills, Dizziness, Change in appetite, Night Sweats Endocrine: DENIES: Abnorml menstrual pattern, Heat/cold intolerance, Polydipsia , Polyuria, Polyphagia Eyes: DENIES: Blurred vision, Diplopia, Eye inflammation, Eye pain, Vision loss , Photosensitivity, Double Vision Ears, nose, mouth, throat: DENIES: Tinnitus, Hearing loss, Vertigo, Nasal discharge, Oral lesions, Throat pain, Hoarseness, Ear Pain, Running Nose, Epistaxis, Sinus Pain, Toothache, Odynophagia Respiratory: DENIES: Apneas, Cough, Snoring, Wheezing, Hemoptysis, Sputum production, Shortness of breath Cardiovascular: DENIES: Chest pain, Palpitations, Syncope, Dyspnea on Exertion , PND, Lower Extremity Edema, Orthopnea, Claudication Gastrointestinal: DENIES: Abdominal pain, Black stools, Bloody stools, Constipation, Diarrhea, Nausea, Vomiting, Difficulty Swallowing, Anorexia Genitourinary: DENIES: Abnormal vaginal bleeding, Dysmenorrhea, Dyspareunia, Sexual dysfunction, Urinary frequency, Urinary incontinence, Urgency, Hematuria , Dysuria, Nocturia, Vaginal discharge Musculoskeletal: DENIES: Joint pain, Muscle aches, Stiffness, Joint Swelling, Back pain, Neck pain Integumentary: DENIES: Abnormal pigmentation, Pruritus, Rash, Nail changes, Breast masses, Breast skin changes, Nipple discharge Hematologic/lymphatic: DENIES: Bruising, Lymphadenopathy Immunologic/allergic: DENIES: Eczema, Urticaria Neurologic: DENIES: Abnormal gait, Headache, Localized weakness, Paresthesias, Seizures, Speech Problems, Tremor, Poor Balance Psychiatric: COMPLAINS OF: Anxiety Past Family Social History Coded Allergies: Abilify (Verified Allergy, Severe, 12/10/16) Buspar (Verified Allergy, Severe, Nausea/Vomiting, 12/10/16) Sulfa (Verified Allergy, Unknown, 12/10/16) Benadryl (Verified Adverse Reaction, Severe, 12/10/16) PATIENT STATES." IT HAS OPPOSITE AFFECT. IT MAKES ME SPEEDY, MORE AWAKE. IT MAKES MY SCALP FEEL TINGLY." PATIENT STATES "I DON'T TAKE ANITHISTAMINES BECAUSE THEY HAVE AN OPPOSITE EFFECT THAN WHAT THEY'REV SUPPOSE TO HAVE." Fentanyl (Verified Adverse Reaction, Severe, 12/10/16) hallucications Uncoded Allergies: ALOE VERA (Adverse Reaction, Severe, RASH, 10/01/09) Past Medical History C MedSurg Reported Medications [place] 3 Fatty Acids-[place] 6 FA ([place]-3-6-9)1 Cap Cap1 Cap PO TID 12/10/16 Insulin Human Isophane-Regular 70-30 Inj (Novolin 70-30 Inj)1,000 Unit/10 Ml Vial15 Units SQ HS Ref 0 12/10/16 Metoprolol Tartrate 25 Mg Tab12.5 Mg PO BID #60 TAB Ref 0 12/10/16 [place] Carbonate ER 450 Mg Rde242 Mg PO BID Ref 0 12/10/16 Levothyroxine 50 Mcg Tab50 Mcg PO DAILY #30 TAB Ref 0 12/10/16 Levofloxacin (Levaquin)750 Mg Vyp511 Mg PO DAILY Ref 0 12/10/16 Insulin Human NPH Inj (Humulin N Inj)1,000 Unit/10 Ml Vial30 Units SQ DAILY # 10 ML Ref 0 12/10/16 Fluconazole (Diflucan)200 Mg Xpo247 Mg PO DAILY Ref 0 12/10/16 Gabapentin 100 Mg Rvm154 Mg PO QID #90 CAP Ref 0 12/10/16 Ferrous Sulfate 325 Mg Rty739 Mg PO BID #30 TAB Ref 0 12/10/16 Escitalopram (Lexapro)10 Mg Tab10 Mg PO DAILY #30 TAB Ref 0 12/10/16 Docusate Sodium (Colace)100 Mg Pcf893 Mg PO BID #60 CAP Ref 0 12/10/16 Clopidogrel (Plavix)75 Mg Tab75 Mg PO DAILY #30 TAB Ref 0 12/10/16 Atorvastatin (Lipitor)40 Mg Tab40 Mg PO HS #30 TAB Ref 0 12/10/[address] (Aspirin Adult Low Strength)81 Mg Tabdr81 Mg PO DAILY 12/10/16 Current Medications Medications (Trade) Dose Ordered Sig/Vanesa Route Start Time Stop Time Status Last Admin (NS 1000 ml Inj) 1,000 ml @ 100 mls/hr Q10H IV 12/10/16 16:52 12/11/16 11:08 (NS Flush) 2 ml UNSCH PRN IV FLUSH 12/10/16 17:00 (NS Flush) 2 ml BID IV FLUSH 12/10/16 21:00 12/10/16 21:52 (Tylenol) 650 mg Q4H PRN PO 12/10/16 17:00 (Zofran Inj) 4 mg Q6H PRN IVP 12/10/16 17:00 (Colace) 100 mg Q12H PO 12/10/16 17:00 12/11/16 04:57 (Milk Of Magnesia Liq) 30 ml Q12H PRN PO 12/10/16 17:00 Enoxaparin Sodium 40 mg 40 mg Q24H SQ 12/10/16 18:00 12/10/16 18:23 Pharmacy Profile Note 0 ml @ 0 mls/hr UNSCH OTHER 12/10/16 17:00 (Zosyn 4.5 Gm Premix) 100 ml @ 200 mls/hr Q6H IV 12/10/16 18:00 12/11/16 11:07 (Ecotrin Ec) 81 mg DAILY PO 12/11/16 09:00 (Lipitor) 40 mg HS PO 12/10/16 21:00 12/10/16 21:51 (Lexapro) 10 mg DAILY PO 12/11/16 09:00 12/11/16 08:35 (Ferrous Sulfate) 325 mg BID PO 12/10/16 21:00 12/11/16 08:33 (Diflucan) 200 mg DAILY PO 12/11/16 09:00 12/11/16 08:43 (Neurontin) 200 mg QID PO 12/10/16 18:00 12/11/16 11:09 (Levaquin) 750 mg DAILY PO 12/11/16 09:00 12/11/16 08:33 (Synthroid) 50 mcg DAILY@06 PO 12/11/16 06:00 12/11/16 04:57 (Eskalith Sr) 450 mg BID PO 12/10/16 21:00 12/11/16 08:36 (Lopressor) 12.5 mg BID PO 12/10/16 21:00 12/11/16 08:35 (D50w (Vial) Inj) 25 ml UNSCH PRN IV PUSH 12/10/16 17:00 (Glucagon Inj) 1 mg UNSCH PRN OTHER 12/10/16 17:00 (D50w (Vial) Inj) 25 ml UNSCH PRN IV PUSH 12/10/16 19:30 (Glucagon Inj) 1 mg UNSCH PRN OTHER 12/10/16 19:30 Miscellaneous Information SPECIFIC LAB TO BE DOM... ONCE ONCE .XX 12/13/16 04:45 12/13/16 04:46 (Vancomycin Inj/ NS 250 ml Inj) 262.5 ml @ 262.5 mls/ hr Q12H IV 12/11/16 17:00 (Ativan) 1 mg Q8H PRN PO 12/11/16 10:45 12/11/16 11:09 (Roxicodone) 5 mg Q4H PRN PO 12/11/16 10:45 (Roxicodone) 10 mg Q4H PRN PO 12/11/16 10:45 12/11/16 11:08 Family History Unknown at this time Social History Patient lives with [facility] Patient's Strengths (min. 2) Patient verbal cooperative irritable [facility] Physical Exam Please see med [facility] Vital Signs Vital Signs Date Time Temp Pulse Resp B/P Pulse Ox O2 Delivery O2 Flow Rate FiO2 12/11/16 12:00 96.6 65 18 144/64 100 12/10/16 13:12 Room Air I/O 12/10/16 12/10/16 12/10/16 07:59 15:59 23:59 Intake Total 708 ml Balance 708 ml Mental Status Examination Alert oriented white female lying calmly in bed cooperative with me with good eye contact reactive with occasional small smile Appearance Clean neat Orientation: x3 Memory: Unremarkable Thought Process: Logical Thought Content: Unremarkable Language [place] [employer] Fair Suicidal Ideation: No Previous Suicide Attempts: No Homicidal Ideation: No Previous Homicide Attempts: No Insight: Fair Judgment: WNL Affect: Other (good range and intensity) Mood: Euthymic Motor Activity: Abnormal gait-specify (second. 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 Okay by psych for discharge or medically clear and stable follow-up psychiatrically with the clinician of the community will sign off the present time Discharge Planning To be determined by treatment team Request HC Surrog/Guard Advoc?: No Problem Qualifiers (1) Schizoaffective disorder: Qualified Code: F25.0 - Schizoaffective disorder, bipolar type Christofer Delatorre MD December 11, 2016 15:39
[2016-12-11 16:00] VITALS: BP 139/67; PULSE 67; RESP 17; TEMP 97.2; O2SAT 98
[2016-12-11] MEDS: VANCOMYCIN INJ 1,250 MG in SODIUM CHLOR 0.9% 250 ML INJ 250 ML IV SCH (16:37)
[2016-12-11] MEDS: ENOXAPARIN SODIUM 40 MG/0.4 ML SYRINGE SQ SCH (18:00)
[2016-12-11 20:00] VITALS: BP 141/64; PULSE 67; RESP 18; TEMP 97.4; O2SAT 100
[2016-12-11] MEDS: ATORVASTATIN 40 MG TAB PO SCH (20:38)
[2016-12-11] MEDS ORDERED: LACTATED RINGER'S 1000 ML IV PRN (21:30)
[2016-12-11] MEDS ORDERED: CHLORHEXIDINE GLUCONATE 2 % 1 PACK (2 CLOTHS) TOPICAL PRN (21:30)
[2016-12-11] MEDS ORDERED: POVIDONE IODINE 5% (ANTISEPSIS KIT) 4 APPLICATIONS EACH NARE PRN (21:30)
[2016-12-11] MEDS ORDERED: SODIUM CHLORID 0.9% 500 ML IV PRN (21:30)
[2016-12-11] MEDS ORDERED: INSULIN HUMAN REGULAR 1,000 UNITS/10 ML VIAL SQ PRN (21:30)
[2016-12-11 23:58] VITALS: BP 152/69; PULSE 61; RESP 18; TEMP 97.5; O2SAT 98
[2016-12-12] MEDS: PIPERACIL-TAZO 4.5 GM PREMIX 100 ML IV SCH ×4 (04:40→23:42)
[2016-12-12] MEDS: DOCUSATE SODIUM 100 MG CAP PO SCH ×2 (04:40→16:46)
[2016-12-12] MEDS: VANCOMYCIN INJ 1,250 MG in SODIUM CHLOR 0.9% 250 ML INJ 250 ML IV SCH ×2 (04:40→16:44)
[2016-12-12] MEDS: LEVOTHYROXINE SODIUM 50 MCG TAB PO SCH (04:40)
[2016-12-12] MEDS: INSULIN ASPART SUPPLEMENTAL SCALE SQ SCH ×4 (06:34→20:55)
[2016-12-12 08:00] VITALS: BP 120/60; PULSE 83; RESP 17; TEMP 98.4; O2SAT 96
[2016-12-12] MEDS: METOPROLOL TARTRATE 25 MG TAB PO SCH ×2 (08:36→20:51)
[2016-12-12] MEDS: LEVOFLOXACIN 750 MG TAB PO SCH (08:37)
[2016-12-12] MEDS: FLUCONAZOLE 200 MG TAB PO SCH (08:37)
[2016-12-12] MEDS: FERROUS SULFATE 325 MG (65 MG ELEMENTAL IRON) TAB PO SCH ×2 (08:37→20:51)
[2016-12-12] MEDS: ESCITALOPRAM OXALATE 10 MG TAB PO SCH (08:37)
[2016-12-12] MEDS: ASPIRIN EC 81 MG TABEC PO SCH (08:38)
[2016-12-12] MEDS: LITHIUM CARBONATE 450 MG CONTROLLED RELEASE TAB PO SCH ×2 (08:38→20:51)
[2016-12-12] MEDS: GABAPENTIN 100 MG CAP PO SCH ×4 (08:38→20:51)
[2016-12-12] MEDS: SODIUM CHLORIDE 0.9% FLUSH 10 ML FLUSH IV FLUSH SCH ×2 (08:39→20:51)
[2016-12-12] MEDS: SODIUM CHLOR 0.9% 1000 ML INJ 1,000 ML IV SCH ×2 (08:39→16:49)
[2016-12-12] MEDS ORDERED: MIDAZOLAM HCL 2 MG/2 ML VIAL ONE (09:32)
[2016-12-12] MEDS ORDERED: ACETAMINOPHEN 1000 MG/100 ML VIAL IV ONE (09:32)
[2016-12-12] MEDS ORDERED: BUPIVACAINE HCL PF 0.5% 30 ML VIAL ONE (09:55)
[2016-12-12] MEDS ORDERED: MORPHINE SULFATE 4 MG/ML INJ ONE ×2 (10:04→10:43)
[2016-12-12] MEDS ORDERED: DO NOT ADM ANY ANTICOAGULANT DRUGS PRN (11:06)
--- NOTE | 2016-12-12 11:12 | HHI.PR ---
Immediate Post Op Note Procedure Date: December 12, 2016 Pre Op Diagnosis: left foot 2 3 metatarsal and calcaneus OM, plantar ulcer. Post Op Diagnosis: same Surgeon: Avery Meléndez Pocket Closer(s): scrub Procedure: Left foot incision bone cortex calcaneus (3 seperate areas) , 2 3 metatarsal head resection, ulcer debridement and wound closure Findings: see op dictation Complications: None Specimen(s) removed: 1. posterior inferior calc, 2. posterior superior calc, 3. STJ calc, 4. 2 met, 5. 3 met head- all for path R/O OM. 1. calc bn cx for mirco, 2. 2 and 3 metatarsals for bn cx Estimated blood loss: 30 mL Anesthesia: General, Local Drains: None Fluids: see anethesia IVF Tourniquet time (min at mmHg) esmark ankle approx 30 min Patient to: Other Patient Condition: Fair Implant/Devices: SEE IMPLANT LOG (if applicable) Date/Time of Procedure: SEE SURGICAL CARE RECORD Avery MeléndezM December 12, 2016 11:12
[2016-12-12 12:00] VITALS: BP 113/55; PULSE 66; RESP 18; TEMP 96.4; O2SAT 95
[2016-12-12] MEDS ORDERED: PROPOFOL 200 MG/20 ML AMP IV ONE (12:00)
[2016-12-12] MEDS ORDERED: ePHEDrine/NS 25 MG/5 ML SYR IV ONE (12:00)
[2016-12-12] MEDS ORDERED: LACTATED RINGER'S 1000 ML INJ 1,000 ML IV ONE (12:00)
[2016-12-12] MEDS ORDERED: ONDANSETRON HCL 4 MG/2 ML VIAL IV PUSH ONE (12:00)
[2016-12-12] MEDS: DIAZEPAM 10 MG TAB PO PRN (12:41)
--- NOTE | 2016-12-12 13:16 | HHI.PR ---
Subjective Remarks She is less anxious today , went ofr surgery, seen after surgery. Patient says pain is controlled by meds. No fever or chills. No n/v/d/c. Denies chest pain, sob, palpitations. Eating well. Objective Vitals Vital Signs Date Time Temp Pulse Resp B/P Pulse Ox O2 Delivery O2 Flow Rate FiO2 12/12/16 11:55 98.1 64 14 125/58 98 Room Air 12/12/16 11:45 64 14 125/58 98 Room Air 12/12/16 11:30 63 14 125/55 98 Room Air 12/12/16 11:15 65 14 124/57 100 Nasal Cannula 2 12/12/16 11:05 98.1 65 14 117/59 100 Nasal Cannula 2 12/12/16 08:00 98.4 83 17 120/60 96 12/11/16 23:58 97.5 61 18 152/69 98 12/11/16 20:00 97.4 67 18 141/64 100 12/11/16 16:00 97.2 67 17 139/67 98 I/O 12/11/16 12/11/16 12/11/16 12/12/16 12/12/16 12/12/16 06:59 14:59 22:59 06:59 14:59 22:59 Intake Total 1170 ml 1259 ml 1260 ml 975 ml 1504 ml Output Total 1000 ml 1050 ml 1600 ml 2800 ml Balance 170 ml 209 ml -340 ml -1825 ml 1504 ml Intake Oral 240 ml 460 ml 480 ml 240 ml IV Total 930 ml 799 ml 780 ml 735 ml 504 ml Other 1000 ml Output Urine Total 1000 ml 1050 ml 1600 ml 2800 ml # Voids 1 # Bowel Movements 0 0 0 0 Result Diagram: 12/10/16 1510 12/12/16 0650 Imaging Last Impressions Foot X-Ray 12/10/16 0000 Signed Impressions: Service Date/Time: Saturday, December 10, 2016 15:47 - CONCLUSION: 1. Evidence for a previous surgery. 2. Osteomyelitis distal second metatarsal cannot be excluded. Francisco Torres MD FACR Foot MRI 12/10/16 0000 Signed Impressions: Service Date/Time: Saturday, December 10, 2016 20:00 - CONCLUSION: Osteomyelitis involving the second at the end third metatarsals distally as well as the calcaneus. Christofer Dunbar MD Objective Remarks GENERAL: This is a well-nourished, well-developed patient, in no apparent distress. SKIN: No rashes, ecchymoses or lesions. Cool and dry. HEAD: Atraumatic. Normocephalic. No temporal or scalp tenderness. EYES: Pupils equal round and reactive. Extraocular motions intact. No scleral icterus. No injection or drainage. ENT: Nose without bleeding, purulent drainage or septal hematoma. Throat without erythema, tonsillar hypertrophy or exudate. Uvula midline. Airway patent. NECK: Trachea midline. No JVD or lymphadenopathy. Supple, nontender, no meningeal signs. CARDIOVASCULAR: Regular rate and rhythm without murmurs, gallops, or rubs. RESPIRATORY: Clear to auscultation. Breath sounds equal bilaterally. No wheezes , rales, or rhonchi. GASTROINTESTINAL: Abdomen soft, non-tender, nondistended. No hepato-splenomegaly , or palpable masses. No guarding. MUSCULOSKELETAL: Left foot is wrapped. Vascular intact. Negative Homans sign bilaterally. NEUROLOGICAL: Awake and alert. Cranial nerves II through XII intact. Motor and sensory grossly within normal limits. Five out of 5 muscle strength in all muscle groups. Normal speech. Procedures S/P Left foot incision bone cortex calcaneus (3 seperate areas) , 2 3 metatarsal head resection, ulcer debridement and wound closure on 12/12/[address] Church podiatry A/P Assessment and Plan Pleasant 51-year-old female with Diabetic foot possible osteomyelitis. Left foot ulcer OM 2 3 metatarsal and calcaneus. Started Zosyn and vancomycin IV Consult podiatry , appreciate recommendations Dr Church following S/P Left foot incision bone cortex calcaneus (3 seperate areas) , 2 3 metatarsal head resection, ulcer debridement and wound closure on 12/12/[address] Church podiatry MRI is concerning for near entire involvement of the calcaneus as well distal metatarsals. BKA is the likely best option fpc for the patient per podiatry. Patient wished to not go for BKA but understands may be needed. Plan on biopsying the calcaneus and removing the the infected metatarsals for now however if calc comes back positive, BKA for better fpc function is recommended by podiatry. Seen by podiatry Dr. Church. S/P surgery 12/12/16. Hold plavix for surgery restart when OK per surgeon. Coronary artery disease. Continue home medications. She is taking Plavix and aspirin, podiatry to decide if holding these medications prior to surgery Hypertension. Uncontrolled. Restart home medications. Monitor and increase dose of home medications if needed. Vasotec IV as needed when necessary. Hydralazine by mouth as needed. Diabetes mellitus insulin-dependent. We'll check A1c. Diabetes seems is uncontrolled. Insulin sliding scale, Accu-Cheks Hyperlipidemia. Continue statin Depression / anxiety now unstable. Restart home meds . Add ativan for anxiety/. Consult psych DVT prophylaxis Lovenox Discussed Condition With Patient, nurse Marine Harris MD December 12, 2016 13:16
[2016-12-12 16:00] VITALS: BP 111/53; PULSE 67; RESP 16; TEMP 97.2; O2SAT 97
[2016-12-12] MEDS: ENOXAPARIN SODIUM 40 MG/0.4 ML SYRINGE SQ SCH (16:47)
--- NOTE | 2016-12-12 17:39 | EKG ---
Date Performed: 12/11/2016 Time Performed: 22:11:44 PTAGE: 51 years EKG: Sinus rhythm POSSIBLE LEFT ATRIAL ENLARGEMENT POSSIBLE ANTERIOR MYOCARDIAL INFARCTION , OF INDETERMINATE AGE INFE RIOR MYOCARDIAL INFARCTION , OF INDETERMINATE AGE MODERATE T-WAVE ABNORMALITY, CONSIDER LATERAL ISCHE YOVANNY When compared to previous tracing, patient has developed an Increase in the lateral ST-T wave lara nges. Acute myocardial ischemia should be excluded clinically. The inferior ST elevation is also more pronounced. Myocardial ischemia or injury of the inferior wall should also be Considered and exclude d. ABNORMAL ECG PREVIOUS TRACING : 04/24/2014 16.45 DOCTOR: Christie Duran Interpretating Date/Time 12/12/2016 17:39:03
[2016-12-12 20:00] VITALS: BP 159/68; PULSE 76; RESP 18; TEMP 97.2; O2SAT 98
[2016-12-12] MEDS: ATORVASTATIN 40 MG TAB PO SCH (20:51)
[2016-12-12] MEDS: INSULIN DETEMIR 100 UNITS/ML VIAL SQ SCH (20:54)
[2016-12-12 23:48] VITALS: BP 117/59; PULSE 69; RESP 18; TEMP 99.2; O2SAT 96
[2016-12-13 04:00] VITALS: BP 114/53; PULSE 70; RESP 18; TEMP 98.3; O2SAT 94
[2016-12-13 04:26] LABS: AUTOMATED NEUTROPHIL # 4.1 TH/MM3 (1.8-7.7); BASOPHIL # 0.1 TH/MM3 (0-0.2); BASOPHIL % 0.9 % (0.0-2.0); EOSINOPHIL # 0.2 TH/MM3 (0-0.4); EOSINOPHIL % 3.8 % (0.0-4.0); HEMATOCRIT 32.6 % (35.0-46.0); HEMO FLAGS DIFF FINAL; LYMPH % 23.3 % (9.0-44.0); LYMPHOCYTE # 1.5 TH/MM3 (1.0-4.8); MEAN CELL VOLUME 87.8 FL (80.0-100.0); MEAN CORPUSCULAR HEMOGLOBIN 28.2 PG (27.0-34.0); MEAN CORPUSCULAR HGB CONC 32.1 % (32.0-36.0); MONO % 9.6 % (0.0-8.0); NEUT % 62.4 % (16.0-70.0); PLATELET COUNT 225 TH/MM3 (150-450); RED BLOOD COUNT 3.72 MIL/MM3 (4.00-5.30); RED CELL DISTRIBUTION WIDTH 16.1 % (11.6-17.2); WHITE BLOOD COUNT 6.6 TH/MM3 (4.0-11.0)
[2016-12-13] MEDS: VANCOMYCIN INJ 1,250 MG in SODIUM CHLOR 0.9% 250 ML INJ 250 ML IV SCH ×2 (04:36→16:42)
[2016-12-13] MEDS: SODIUM CHLOR 0.9% 1000 ML INJ 1,000 ML IV SCH ×2 (04:36→16:47)
[2016-12-13] MEDS: LEVOTHYROXINE SODIUM 50 MCG TAB PO SCH (04:37)
[2016-12-13] MEDS: PIPERACIL-TAZO 4.5 GM PREMIX 100 ML IV SCH ×4 (04:37→23:56)
[2016-12-13] MEDS: DOCUSATE SODIUM 100 MG CAP PO SCH ×2 (04:37→16:43)
[2016-12-13] MEDS ORDERED: PHARMACY ORDERED LAB ONE (04:45)
[2016-12-13 04:59] LABS: BICARBONATE 26.7 MEQ/L (21.0-32.0); MAGNESIUM 1.9 MG/DL (1.5-2.5)
[2016-12-13 05:03] LABS: POTASSIUM 4.4 MEQ/L (3.5-5.1)
[2016-12-13] MEDS: INSULIN ASPART SUPPLEMENTAL SCALE SQ SCH ×4 (06:19→20:35)
--- NOTE | 2016-12-13 07:11 | MP ---
cc: DANIELLE GONZALEZM DATE OF SURGERY 12/12/2016 PREOPERATIVE DIAGNOSIS Left foot second and third metatarsal as well as calcaneal osteomyelitis with plantar ulceration of foot. POSTOPERATIVE DIAGNOSIS Left foot second and third metatarsal as well as calcaneal osteomyelitis with plantar ulceration of foot. PROCEDURES PERFORMED 1. Left foot incision bone cortex calcaneus three separate areas. 2. Second metatarsal head resection. 3. Metatarsal head resection. 4. Ulcer debridement with ellipsed enclosure plantar foot wound greater than 3 cm. COMPLICATIONS None. SPECIMEN 1. Posterior-inferior calcaneus. 2. Posterior-superior calcaneus. 3. Subtalar joint calcaneus. 4. Second metatarsal head. 5. Third metatarsal head. These were all sent for pathological analysis - 1. Calcaneal bone culture sent for microbial analysis. 2. Second and third metatarsal bone for culture and microbial analysis. ESTIMATED BLOOD LOSS Approximately 30 mL. ANESTHESIA General with local. Ankle block was performed, approximately 10 cc of 0.25% Marcaine plain. TOURNIQUET TIME Esmarch wrapped about the patient's left ankle for approximately 30 minutes. PROGNOSIS Poor given the expansile extent of the calcaneal osteomyelitis. JUSTIFICATION FOR THE PROCEDURE This a 51-year-old female who is status post incision and drainage for severe foot infection and amputation of second and third digit from Dr. Ramírez from [facility]. The patient has not been healing and she is unhappy with the care and presented to [facility]. The foot appears to be viable; however, given the extent of the MRI, there is likely osteomyelitis of the near entire calcaneus, also involving the forefoot. I advised the patient that, if in fact the entire calcaneus appears to be infected, having a calcanectomy leads to keeping the extremity; however, it will be a nonfunctional extremity. Given that she has a history of forefoot ulceration and loss of digits, she will likely have severe hammertoes and eventually ulcerate the forefoot even if she heals her current issue, the ulceration of the forefoot and the plantar mid-foot. It is quite complex but the patient did not want to move forward with primary consultation for [id number]-[id number]-ddht amputation. We devised a plan to move forward with resection of osteomyelitic bone at the forefoot and to obtain three separate bone biopsies and cultures of the calcaneus to prove the extent of the osteomyelitis. No guarantees were given or implied regarding the outcome and the patient is well aware that she may eventually need the leg amputated due to the severity of the infection. PROCEDURE IN DETAIL Under mild sedation the patient was brought into the operating room, placed on the operative in supine position. Following the induction of general anesthesia, the left lower extremity was scrubbed, prepped and draped in the usual aseptic fashion. The foot was elevated an Esmarch remained around the patient's ankle for approximately 30 minutes. An incision was made over the posterior medial calcaneus being careful not to violate neurovascular structures. Sharp and blunt dissection was carried down to the medial wall of the calcaneus. A Jamshidi trocar and bone biopsy cannula was introduced. Specimen was obtained and this was cultured. The wound was closed. The bone appear to be hard. There was no pus. The lateral posterior-superior calcaneus was identified being careful not to violate the peroneal tendons or the insertion of the Achilles' tendon. Sharp and blunt dissection was carried down to the calcaneus, biopsy performed similar to what was previously stated. The bone appear to be hard; no obvious purulence from the bone. Culture taken and the wound closed. Next, the lateral aspect of subtalar joint was palpated and just at the inferior aspect of the subtalar joint the calcaneus was then biopsied at this level. Linear incision made. Sharp and blunt dissection was carried down to the lateral anterior calcaneus. Jamshidi trocar introduced, bone removed and culture taken. All wounds were then closed utilizing nylon. Next, an elliptical incision took place over the forefoot of all fibrotic tissue at a previous second and third metatarsal amputation site. Sharp and blunt dissection was carried down to the level of second and third metatarsal. To be certain of this, fluoroscopy was used to be certain there was no bony fragmentation left from previous surgery. Next, at the mid-shaft of the metatarsals, the bone was resected and culture taken. There appears to be no obvious deep abscess at this point. The wound was then closed primarily utilizing nylon. Next focus was the plantar wound. There was exposed plantar fascia with fibrotic wound base. The plantar fascia was then excised down to the patient's first layer of quadratus planti. At this time the wound was then undermined and primarily closed utilizing 0 Prolene. Upon relieving the tourniquet there was a prompt hyperemic response to the remaining digits and there was good bleeding at the surgery sites, non-excessive. PT block/ankle block took place utilizing standard block fashion ankle block. A bulky bandage was placed and the patient transferred from OR to PACU with all vital signs stable. It is my recommendation we continue to check the viability of the foot over the next [id number] days and of course wait for pathology. If all bone is infected, the best opportunity for this patient to ambulate again I do feel would be a [id number] amputation. However, we will advise further depending on the biopsy results. MARY Stephenson/SAMANTHA /11:09 AM /6:59 AM
[2016-12-13 08:00] VITALS: BP 135/63; PULSE 71; RESP 17; TEMP 96.9; O2SAT 94
[2016-12-13] MEDS: SODIUM CHLORIDE 0.9% FLUSH 10 ML FLUSH IV FLUSH SCH ×2 (09:00→20:20)
[2016-12-13] MEDS: LEVOFLOXACIN 750 MG TAB PO SCH (09:06)
[2016-12-13] MEDS: ESCITALOPRAM OXALATE 10 MG TAB PO SCH (09:07)
[2016-12-13] MEDS: GABAPENTIN 100 MG CAP PO SCH ×4 (09:07→20:18)
[2016-12-13] MEDS: ASPIRIN EC 81 MG TABEC PO SCH (09:07)
[2016-12-13] MEDS: FLUCONAZOLE 200 MG TAB PO SCH (09:07)
[2016-12-13] MEDS: METOPROLOL TARTRATE 25 MG TAB PO SCH ×2 (09:08→20:19)
[2016-12-13] MEDS: FERROUS SULFATE 325 MG (65 MG ELEMENTAL IRON) TAB PO SCH ×2 (09:08→20:18)
[2016-12-13] MEDS: LITHIUM CARBONATE 450 MG CONTROLLED RELEASE TAB PO SCH ×2 (09:08→20:18)
[2016-12-13] MEDS: INSULIN DETEMIR 100 UNITS/ML VIAL SQ SCH ×2 (09:10→20:32)
--- NOTE | 2016-12-13 09:59 | HHI.PR ---
Subjective Remarks Patient is having pain in her foot, controlled by meds. Says she is preparing for BKA if need, she will agree to it. Patient denies fever or chills. No n/v/d/c. No n/v/d/c. Objective Vitals Vital Signs Date Time Temp Pulse Resp B/P Pulse Ox O2 Delivery O2 Flow Rate FiO2 12/13/16 08:00 96.9 71 17 135/63 94 12/13/16 04:00 98.3 70 18 114/53 94 12/12/16 23:48 99.2 69 18 117/59 96 12/12/16 20:00 97.2 76 18 159/68 98 12/12/16 18:08 Nasal Cannula 2.00 12/12/16 16:00 97.2 67 16 111/53 97 12/12/16 12:00 96.4 66 18 113/55 95 12/12/16 11:55 98.1 64 14 125/58 98 Room Air 12/12/16 11:45 64 14 125/58 98 Room Air 12/12/16 11:30 63 14 125/55 98 Room Air 12/12/16 11:15 65 14 124/57 100 Nasal Cannula 2 12/12/16 11:05 98.1 65 14 117/59 100 Nasal Cannula 2 I/O 12/12/16 12/12/16 12/12/16 12/13/16 12/13/16 12/13/16 07:00 15:00 23:00 07:00 15:00 23:00 Intake Total 975 ml 1888 ml 965 ml 1175 ml Output Total 2800 ml 350 ml 1850 ml 1750 ml Balance -1825 ml 1538 ml -885 ml -575 ml Intake Oral 240 ml 250 ml 240 ml 480 ml IV Total 735 ml 638 ml 725 ml 695 ml Other 1000 ml Output Urine Total 2800 ml 350 ml 1850 ml 1750 ml # Bowel Movements 0 0 0 0 Result Diagram: 12/13/16 0350 12/13/16 0350 Imaging Last Impressions Foot X-Ray 12/10/16 0000 Signed Impressions: Service Date/Time: Saturday, December 10, 2016 15:47 - CONCLUSION: 1. Evidence for a previous surgery. 2. Osteomyelitis distal second metatarsal cannot be excluded. Francisco Torres MD FACR Foot MRI 12/10/16 0000 Signed Impressions: Service Date/Time: Saturday, December 10, 2016 20:00 - CONCLUSION: Osteomyelitis involving the second at the end third metatarsals distally as well as the calcaneus. Christofer Dunbar MD Objective Remarks GENERAL: This is a well-nourished, well-developed patient, in no apparent distress. SKIN: No rashes, ecchymoses or lesions. Cool and dry. HEAD: Atraumatic. Normocephalic. No temporal or scalp tenderness. EYES: Pupils equal round and reactive. Extraocular motions intact. No scleral icterus. No injection or drainage. ENT: Nose without bleeding, purulent drainage or septal hematoma. Throat without erythema, tonsillar hypertrophy or exudate. Uvula midline. Airway patent. NECK: Trachea midline. No JVD or lymphadenopathy. Supple, nontender, no meningeal signs. CARDIOVASCULAR: Regular rate and rhythm without murmurs, gallops, or rubs. RESPIRATORY: Clear to auscultation. Breath sounds equal bilaterally. No wheezes , rales, or rhonchi. GASTROINTESTINAL: Abdomen soft, non-tender, nondistended. No hepato-splenomegaly , or palpable masses. No guarding. MUSCULOSKELETAL: Left foot is wrapped. Vascular intact. Negative Homans sign bilaterally. NEUROLOGICAL: Awake and alert. Cranial nerves II through XII intact. Motor and sensory grossly within normal limits. Five out of 5 muscle strength in all muscle groups. Normal speech. Procedures S/P Left foot incision bone cortex calcaneus (3 seperate areas) , 2 3 metatarsal head resection, ulcer debridement and wound closure on 12/12/[address] Church podiatry A/P Assessment and Plan Pleasant 51-year-old female with Diabetic foot possible osteomyelitis. Left foot ulcer OM 2 3 metatarsal and calcaneus. Started Zosyn and vancomycin IV Consult podiatry , appreciate recommendations Dr Church following S/P Left foot incision bone cortex calcaneus (3 seperate areas) , 2 3 metatarsal head resection, ulcer debridement and wound closure on 12/12/[address] Church podiatry MRI is concerning for near entire involvement of the calcaneus as well distal metatarsals. 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 Patient wished to not go for BKA but understands may be needed. Plan on biopsying the calcaneus and removing the the infected metatarsals for now however if calc comes back positive, BKA for better middle or intermediate school principal function is recommended by podiatry. Seen by podiatry Dr. Church. S/P surgery 12/12/16. Hold plavix for surgery restart when OK per surgeon. Depending on biopsy result and improvement over 2-3 days patient might need BKA per podiatry ADRIANA : Start IVF as patient with worsening kidney function. Monitor kidney function. Avoid nephrotoxins. Coronary artery disease. Continue home medications. She is taking Plavix and aspirin, podiatry to decide if holding these medications prior to surgery Hypertension. Uncontrolled. Restart home medications. Monitor and increase dose of home medications if needed. Vasotec IV as needed when necessary. Hydralazine by mouth as needed. Diabetes mellitus insulin-dependent, uncontrolled, A1c 8.8. Diabetes is uncontrolled. Insulin sliding scale, Accu-Cheks. Started dtetemir insulin 5U bid. Monitor and adjust as need. Hyperlipidemia. Continue statin Depression / anxiety now unstable. Restart home meds . Add ativan for anxiety/. Consult psych DVT prophylaxis Lovenox Discussed Condition With Patient, nurse Marine Harris MD December 13, 2016 09:59
[2016-12-13 10:10] VITALS: O2SAT 99
[2016-12-13] MEDS: MAGNESIUM HYDROXIDE SUSP 30 ML CUP PO PRN (11:34)
[2016-12-13] MEDS: DIAZEPAM 10 MG TAB PO PRN (11:34)
[2016-12-13 12:00] VITALS: BP 161/71; PULSE 61; RESP 18; TEMP 96.6; O2SAT 96
[2016-12-13 16:00] VITALS: BP_SYST 109; BP_SYST 134; BP_DIAS 55; BP_DIAS 89; PULSE 67; PULSE 69; RESP 17; TEMP 97.8; TEMP 97.9; O2SAT 91; O2SAT 98
[2016-12-13] MEDS: ENOXAPARIN SODIUM 40 MG/0.4 ML SYRINGE SQ SCH (16:43)
[2016-12-13 20:00] VITALS: BP 158/60; PULSE 63; RESP 18; TEMP 97.2; O2SAT 96
[2016-12-13] MEDS: ATORVASTATIN 40 MG TAB PO SCH (20:18)
[2016-12-14] VITALS: BP 115/56; PULSE 64; RESP 18; TEMP 97.6; O2SAT 95
[2016-12-14] MEDS: SODIUM CHLOR 0.9% 1000 ML INJ 1,000 ML IV SCH ×3 (02:20→20:28)
[2016-12-14] MEDS: LEVOTHYROXINE SODIUM 50 MCG TAB PO SCH (05:07)
[2016-12-14] MEDS: PIPERACIL-TAZO 4.5 GM PREMIX 100 ML IV SCH ×3 (05:07→16:56)
[2016-12-14] MEDS: DOCUSATE SODIUM 100 MG CAP PO SCH ×2 (05:07→16:55)
[2016-12-14] MEDS: VANCOMYCIN INJ 1,250 MG in SODIUM CHLOR 0.9% 250 ML INJ 250 ML IV SCH ×2 (05:08→17:35)
[2016-12-14] MEDS: INSULIN ASPART SUPPLEMENTAL SCALE SQ SCH ×4 (06:55→20:28)
[2016-12-14 08:00] VITALS: BP 159/68; PULSE 63; RESP 17; TEMP 95.9; O2SAT 98
[2016-12-14] MEDS: GABAPENTIN 100 MG CAP PO SCH ×5 (08:58→20:14)
[2016-12-14] MEDS: ESCITALOPRAM OXALATE 10 MG TAB PO SCH (08:58)
[2016-12-14] MEDS: ASPIRIN EC 81 MG TABEC PO SCH (08:58)
[2016-12-14] MEDS: LEVOFLOXACIN 750 MG TAB PO SCH ×2 (08:58→10:12)
[2016-12-14] MEDS: FLUCONAZOLE 200 MG TAB PO SCH (08:59)
[2016-12-14] MEDS: SODIUM CHLORIDE 0.9% FLUSH 10 ML FLUSH IV FLUSH SCH ×2 (08:59→20:31)
[2016-12-14] MEDS: METOPROLOL TARTRATE 25 MG TAB PO SCH ×2 (08:59→20:14)
[2016-12-14] MEDS: FERROUS SULFATE 325 MG (65 MG ELEMENTAL IRON) TAB PO SCH ×2 (08:59→20:13)
[2016-12-14] MEDS: INSULIN DETEMIR 100 UNITS/ML VIAL SQ SCH (09:01)
[2016-12-14] MEDS: LITHIUM CARBONATE 450 MG CONTROLLED RELEASE TAB PO SCH ×2 (10:12→20:13)
[2016-12-14] MEDS: DIAZEPAM 10 MG TAB PO PRN (10:12)
[2016-12-14 12:00] VITALS: BP 165/72; PULSE 67; RESP 18; TEMP 97; O2SAT 95
[2016-12-14 16:00] VITALS: BP 160/72; PULSE 61; RESP 17; TEMP 97.6; O2SAT 98
[2016-12-14] MEDS: ENOXAPARIN SODIUM 40 MG/0.4 ML SYRINGE SQ SCH (16:55)
--- NOTE | 2016-12-14 17:47 | HHI.PR ---
Subjective Remarks Patient in bed. Says she has a lot of pain in her foot of the surgical site and at the arch of the foods as well as the plantar region. Denies fever or chills overnight. No n/v/d/c. Objective Vitals Vital Signs Date Time Temp Pulse Resp B/P Pulse Ox O2 Delivery O2 Flow Rate FiO2 12/14/16 16:00 97.6 61 17 160/72 98 12/14/16 12:00 97.0 67 18 165/72 95 12/14/16 08:00 95.9 63 17 159/68 98 12/14/16 00:00 97.6 64 18 115/56 95 12/13/16 20:00 97.2 63 18 158/60 96 I/O 12/13/16 12/13/16 12/13/16 12/14/16 12/14/16 12/14/16 07:00 15:00 23:00 07:00 15:00 23:00 Intake Total 1175 ml 2516 ml 777 ml 771 ml 1701 ml Output Total 1750 ml 1450 ml 1800 ml 2575 ml Balance -575 ml 1066 ml -1023 ml 771 ml -874 ml Intake Oral 480 ml 1520 ml 240 ml 1240 ml IV Total 695 ml 996 ml 537 ml 771 ml 461 ml Output Urine Total 1750 ml 1450 ml 1800 ml 2575 ml # Bowel Movements 0 0 0 1 Result Diagram: 12/13/16 0350 12/13/16 0350 Imaging Last Impressions Foot X-Ray 12/10/16 0000 Signed Impressions: Service Date/Time: Saturday, December 10, 2016 15:47 - CONCLUSION: 1. Evidence for a previous surgery. 2. Osteomyelitis distal second metatarsal cannot be excluded. Francisco Torres MD FACR Foot MRI 12/10/16 0000 Signed Impressions: Service Date/Time: Saturday, December 10, 2016 20:00 - CONCLUSION: Osteomyelitis involving the second at the end third metatarsals distally as well as the calcaneus. Christofer Dunbar MD Objective Remarks GENERAL: This is a well-nourished, well-developed patient, in no apparent distress. SKIN: No rashes, ecchymoses or lesions. Cool and dry. HEAD: Atraumatic. Normocephalic. No temporal or scalp tenderness. EYES: Pupils equal round and reactive. Extraocular motions intact. No scleral icterus. No injection or drainage. ENT: Nose without bleeding, purulent drainage or septal hematoma. Throat without erythema, tonsillar hypertrophy or exudate. Uvula midline. Airway patent. NECK: Trachea midline. No JVD or lymphadenopathy. Supple, nontender, no meningeal signs. CARDIOVASCULAR: Regular rate and rhythm without murmurs, gallops, or rubs. RESPIRATORY: Clear to auscultation. Breath sounds equal bilaterally. No wheezes , rales, or rhonchi. GASTROINTESTINAL: Abdomen soft, non-tender, nondistended. No hepato-splenomegaly , or palpable masses. No guarding. MUSCULOSKELETAL: Left foot is wrapped. Vascular intact. Negative Homans sign bilaterally. NEUROLOGICAL: Awake and alert. Cranial nerves II through XII intact. Motor and sensory grossly within normal limits. Five out of 5 muscle strength in all muscle groups. Normal speech. Procedures S/P Left foot incision bone cortex calcaneus (3 seperate areas) , 2 3 metatarsal head resection, ulcer debridement and wound closure on 12/12/[address] Church podiatry A/P Assessment and Plan Pleasant 51-year-old female with Diabetic foot possible osteomyelitis. Left foot ulcer OM 2 3 metatarsal and calcaneus. On Zosyn and vancomycin IV Consult podiatry , appreciate recommendations Dr Church following S/P Left foot incision bone cortex calcaneus (3 seperate areas) , 2 3 metatarsal head resection, ulcer debridement and wound closure on 12/12/[address] Church podiatry MRI is concerning for near entire involvement of the calcaneus as well distal metatarsals. BKA is the likely best option long-term for the patient per podiatry. Patient wished to not go for BKA but understands may be needed. 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 Seen by podiatry Dr. Church. S/P surgery 12/12/16. Hold plavix for surgery restart when OK per surgeon. Depending on biopsy result and improvement over 2-3 days patient might need BKA per podiatry ADRIANA : Start IVF as patient with worsening kidney function. Monitor kidney function. Avoid nephrotoxins. Coronary artery disease. Continue home medications. She is taking Plavix and aspirin, podiatry to decide if holding these medications prior to surgery Hypertension. Uncontrolled. Restart home medications. Monitor and increase dose of home medications if needed. Vasotec IV as needed when necessary. Hydralazine by mouth as needed. Diabetes mellitus insulin-dependent, uncontrolled, A1c 8.8. Diabetes is uncontrolled. Insulin sliding scale, Accu-Cheks. Increase detemir insulin 10U bid. Monitor and adjust as need. Hyperlipidemia. Continue statin Depression / anxiety now unstable. Restart home meds . Add ativan for anxiety/. Consult psych DVT prophylaxis Lovenox Discussed Condition With Patient, nurse DC plan: Patient with diabetic foot wound, might need BKA, pending results of biopsy , Dr Church will give recommendations for BKA when biopsy results are in. ID to give recommendations at DC for ABX. Marine Harris MD December 14, 2016 17:47
--- NOTE | 2016-12-14 19:19 | PD.POD ---
Subjective Podiatric Problems s/p left second and third metatarsal amputations and multiple bone biopsies by on 12/12. Pathology is still pending. Patient is having some discomfort to the foot, but not any worse then pre operatively. She denies any n //f/h/c/sob. Pain score: 2 Past Med/Surg/Social History Social History Smoking Status: Current Every Day Smoker Objective Vital Signs Vital Signs Date Time Temp Pulse Resp B/P Pulse Ox O2 Delivery O2 Flow Rate FiO2 12/14/16 16:00 97.6 61 17 160/72 98 12/14/16 12:00 97.0 67 18 165/72 95 12/14/16 08:00 95.9 63 17 159/68 98 12/14/16 00:00 97.6 64 18 115/56 95 12/13/16 20:00 97.2 63 18 158/60 96 Coded Allergies: Abilify (Verified Allergy, Severe, 12/10/16) Buspar (Verified Allergy, Severe, Nausea/Vomiting, 12/10/16) Sulfa (Verified Allergy, Unknown, 12/10/16) Benadryl (Verified Adverse Reaction, Severe, 12/10/16) PATIENT STATES." IT HAS OPPOSITE AFFECT. IT MAKES ME SPEEDY, MORE AWAKE. IT MAKES MY SCALP FEEL TINGLY." PATIENT STATES "I DON'T TAKE ANITHISTAMINES BECAUSE THEY HAVE AN OPPOSITE EFFECT THAN WHAT THEY'REV SUPPOSE TO HAVE." Fentanyl (Verified Adverse Reaction, Severe, 12/10/16) hallucications Uncoded Allergies: ALOE VERA (Adverse Reaction, Severe, RASH, 10/01/09) Physical Exam Remarks Exam is consistent with pre operative exam other then dermatologically. Left foot with multiple incisions (5), all are well coapted with all sutures intact, minimal sanginous drainage, mild erythema to metatarsal amputation site. No malodor. Assessment & Plan A/P 1) s/p left foot met amputations and bone biopsies -final pathology pending, if multiple sites are positive for OM then patient is agreeable to a BKA. If the pathology is negative, or only 1-2 sites are positive , then we will rely on iv abx outpt -keep dressing clean and dry, only to be changed once weekly -NWBing LLE -ok to d/c from podiatry standpoint once all micro and path is finalized -will need to f/u with 3-5 days after discharge Hawa Yao DPM December 14, 2016 19:19
[2016-12-14 20:00] VITALS: BP 148/67; PULSE 63; RESP 17; TEMP 96.8; O2SAT 97
[2016-12-14] MEDS: ATORVASTATIN 40 MG TAB PO SCH (20:14)
[2016-12-14] MEDS ORDERED: INSULIN DETEMIR 100 UNITS/ML VIAL SQ SCH (21:00)
[2016-12-15] VITALS: BP 150/68; PULSE 66; RESP 17; TEMP 97; O2SAT 97
[2016-12-15] MEDS: PIPERACIL-TAZO 4.5 GM PREMIX 100 ML IV SCH ×4 (00:19→17:11)
[2016-12-15] MEDS: VANCOMYCIN INJ 1,250 MG in SODIUM CHLOR 0.9% 250 ML INJ 250 ML IV SCH ×2 (04:22→15:12)
[2016-12-15] MEDS: LEVOTHYROXINE SODIUM 50 MCG TAB PO SCH (04:57)
[2016-12-15] MEDS: DOCUSATE SODIUM 100 MG CAP PO SCH ×2 (04:57→15:11)
[2016-12-15] MEDS: SODIUM CHLOR 0.9% 1000 ML INJ 1,000 ML IV SCH ×2 (05:01→15:56)
[2016-12-15 06:22] LABS: AUTOMATED NEUTROPHIL # 2.5 TH/MM3 (1.8-7.7); EOSINOPHIL # 0.2 TH/MM3 (0-0.4); EOSINOPHIL % 4.4 % (0.0-4.0); HEMATOCRIT 30.6 % (35.0-46.0); HEMO FLAGS DIFF FINAL; LYMPH % 32.1 % (9.0-44.0); LYMPHOCYTE # 1.5 TH/MM3 (1.0-4.8); MEAN CELL VOLUME 87.2 FL (80.0-100.0); MEAN CORPUSCULAR HGB CONC 33.3 % (32.0-36.0); MONO % 8.7 % (0.0-8.0); NEUT % 53.8 % (16.0-70.0); PLATELET COUNT 214 TH/MM3 (150-450); RED BLOOD COUNT 3.51 MIL/MM3 (4.00-5.30); RED CELL DISTRIBUTION WIDTH 16.1 % (11.6-17.2); WHITE BLOOD COUNT 4.7 TH/MM3 (4.0-11.0)
[2016-12-15] MEDS: INSULIN ASPART SUPPLEMENTAL SCALE SQ SCH ×4 (06:25→21:00)
[2016-12-15 06:59] LABS: BICARBONATE 28.2 MEQ/L (21.0-32.0); MAGNESIUM 1.8 MG/DL (1.5-2.5); POTASSIUM 3.8 MEQ/L (3.5-5.1)
[2016-12-15 08:00] VITALS: BP 141/65; PULSE 64; RESP 18; TEMP 97.7; O2SAT 97
[2016-12-15] MEDS: FLUCONAZOLE 200 MG TAB PO SCH (08:51)
[2016-12-15] MEDS: FERROUS SULFATE 325 MG (65 MG ELEMENTAL IRON) TAB PO SCH ×2 (08:51→21:33)
[2016-12-15] MEDS: ESCITALOPRAM OXALATE 10 MG TAB PO SCH (08:51)
[2016-12-15] MEDS: LEVOFLOXACIN 750 MG TAB PO SCH (08:51)
[2016-12-15] MEDS: LITHIUM CARBONATE 450 MG CONTROLLED RELEASE TAB PO SCH ×2 (08:51→21:34)
[2016-12-15] MEDS: GABAPENTIN 100 MG CAP PO SCH ×4 (08:52→21:34)
[2016-12-15] MEDS: ASPIRIN EC 81 MG TABEC PO SCH (08:52)
[2016-12-15] MEDS: METOPROLOL TARTRATE 25 MG TAB PO SCH ×2 (08:52→21:35)
[2016-12-15] MEDS: SODIUM CHLORIDE 0.9% FLUSH 10 ML FLUSH IV FLUSH SCH ×2 (08:55→21:36)
[2016-12-15] MEDS: INSULIN DETEMIR 100 UNITS/ML VIAL SQ SCH ×2 (09:14→21:00)
[2016-12-15] MEDS: DIAZEPAM 10 MG TAB PO PRN (10:56)
[2016-12-15 12:00] VITALS: BP 145/76; PULSE 61; RESP 18; TEMP 97; O2SAT 99
--- NOTE | 2016-12-15 13:20 | HHI.PR ---
Subjective Remarks Follow-up diabetic foot infection. States she is doing okay pain under control. Discussed with RN will increase Levemir Objective Vitals Vital Signs Date Time Temp Pulse Resp B/P Pulse Ox O2 Delivery O2 Flow Rate FiO2 12/15/16 08:00 97.7 64 18 141/65 97 12/15/16 00:00 97.0 66 17 150/68 97 12/14/16 20:00 96.8 63 17 148/67 97 12/14/16 16:00 97.6 61 17 160/72 98 I/O 12/14/16 12/14/16 12/14/16 12/15/16 12/15/16 12/15/16 07:00 15:00 23:00 07:00 15:00 23:00 Intake Total 771 ml 1701 ml 887 ml 812 ml Output Total 2575 ml 1700 ml Balance 771 ml -874 ml -813 ml 812 ml Intake Oral 1240 ml 240 ml IV Total 771 ml 461 ml 647 ml 812 ml Output Urine Total 2575 ml 1700 ml # Bowel Movements 1 Result Diagram: 12/15/16 0555 12/15/16 0555 Imaging Last Impressions Foot X-Ray 12/10/16 0000 Signed Impressions: Service Date/Time: Saturday, December 10, 2016 15:47 - CONCLUSION: 1. Evidence for a previous surgery. 2. Osteomyelitis distal second metatarsal cannot be excluded. Francisco Torres MD FACR Foot MRI 12/10/16 0000 Signed Impressions: Service Date/Time: Saturday, December 10, 2016 20:00 - CONCLUSION: Osteomyelitis involving the second at the end third metatarsals distally as well as the calcaneus. Christofer Dunbar MD Objective Remarks GENERAL: This is a well-nourished, well-developed patient, in no apparent distress. SKIN: No rashes, ecchymoses or lesions. Cool and dry. HEAD: Atraumatic. Normocephalic. No temporal or scalp tenderness. EYES: Pupils equal round and reactive. Extraocular motions intact. No scleral icterus. No injection or drainage. ENT: Nose without bleeding, purulent drainage or septal hematoma. Throat without erythema, tonsillar hypertrophy or exudate. Uvula midline. Airway patent. NECK: Trachea midline. No JVD or lymphadenopathy. Supple, nontender, no meningeal signs. CARDIOVASCULAR: Regular rate and rhythm without murmurs, gallops, or rubs. RESPIRATORY: Clear to auscultation. Breath sounds equal bilaterally. No wheezes , rales, or rhonchi. GASTROINTESTINAL: Abdomen soft, non-tender, nondistended. No hepato-splenomegaly , or palpable masses. No guarding. MUSCULOSKELETAL: Left foot is wrapped. Vascular intact. Negative Homans sign bilaterally. NEUROLOGICAL: Awake and alert. Cranial nerves II through XII intact. Motor and sensory grossly within normal limits. Five out of 5 muscle strength in all muscle groups. Normal speech. Procedures S/P Left foot incision bone cortex calcaneus (3 seperate areas) , 2 3 metatarsal head resection, ulcer debridement and wound closure on 12/12/[address] Church podiatry A/P Problem List: (1) Insulin-requiring or dependent type II diabetes mellitus ICD Code: E11.9 Status: Acute (2) Wound, open, foot ICD Code: S91.309A Status: Acute Assessment and Plan Pleasant 51-year-old female with Diabetic foot possible osteomyelitis. Left foot ulcer OM 2 3 metatarsal and calcaneus. On Zosyn and vancomycin IV and by mouth Levaquin S/P Left foot incision bone cortex calcaneus (3 seperate areas) , 2 3 metatarsal head resection, ulcer debridement and wound closure on 12/12/[address] Church podiatry MRI is concerning for near entire involvement of the calcaneus as well distal metatarsals. BKA is the likely best option intermediate frame tender for the patient per podiatry. Patient wished to not go for BKA but understands may be needed. Hold plavix for surgery restart when OK per surgeon. Depending on biopsy result and improvement over 2-3 days patient might need BKA per podiatry ADRIANA : Start IVF as patient with worsening kidney function. Monitor kidney function. Avoid nephrotoxins. Improving Coronary artery disease status post CABG. Continue home medications. She is taking Plavix and aspirin, podiatry to decide when to restart Plavix Hypertension. Uncontrolled. Restart home medications. Monitor and increase dose of home medications if needed. Vasotec IV as needed when necessary. Hydralazine by mouth as needed. Improving Diabetes mellitus insulin-dependent, uncontrolled, A1c 8.8. Diabetes is uncontrolled. Insulin sliding scale, Accu-Cheks. Increase detemir insulin 12 units bid. Monitor and adjust as need. Hyperlipidemia. Continue statin Depression / anxiety now unstable. Restart home meds . Add ativan for anxiety/. Consulted psych DVT prophylaxis Lovenox Discharge Planning Patient with diabetic foot wound, might need BKA, pending results of biopsy , Dr Church will give recommendations for BKA when biopsy results are in. ID to give recommendations at [place] for ABX. Patient has no payor source for outpatient IV antibiotic or SNF. She will likely need home health care PT versus SNF. Also needs wheeled walker and wheelchair with removable legs per PT Problem Qualifiers (1) Wound, open, foot: Qualified Code: S91.302D - Wound, open, foot, left, subsequent encounter Dino Hernandez MD December 15, 2016 13:20 Problem Qualifiers (1) Wound, open, foot: Qualified Code: S91.302D - Wound, open, foot, left, subsequent encounter Dino Hernandez MD December 15, 2016 13:20
[2016-12-15 16:00] VITALS: BP 160/65; PULSE 68; RESP 16; TEMP 96.3; O2SAT 95
[2016-12-15] MEDS: ENOXAPARIN SODIUM 40 MG/0.4 ML SYRINGE SQ SCH (17:11)
[2016-12-15 20:00] VITALS: BP 171/76; PULSE 58; RESP 17; TEMP 97; O2SAT 98
[2016-12-15] MEDS: ATORVASTATIN 40 MG TAB PO SCH (21:33)
[2016-12-16] VITALS: BP 150/72; PULSE 68; RESP 17; TEMP 97.4; O2SAT 98
[2016-12-16] MEDS: PIPERACIL-TAZO 4.5 GM PREMIX 100 ML IV SCH ×2 (00:48→05:30)
[2016-12-16] MEDS: DOCUSATE SODIUM 100 MG CAP PO SCH ×2 (03:09→15:45)
[2016-12-16] MEDS: SODIUM CHLOR 0.9% 1000 ML INJ 1,000 ML IV SCH ×3 (03:11→22:31)
[2016-12-16] MEDS ORDERED: PHARMACY ORDERED LAB ONE (04:45)
[2016-12-16] MEDS: LEVOTHYROXINE SODIUM 50 MCG TAB PO SCH (05:29)
[2016-12-16] MEDS: VANCOMYCIN INJ 1,250 MG in SODIUM CHLOR 0.9% 250 ML INJ 250 ML IV SCH (05:30)
[2016-12-16] MEDS: INSULIN ASPART SUPPLEMENTAL SCALE SQ SCH ×4 (06:09→20:57)
[2016-12-16 08:00] VITALS: BP 162/75; PULSE 60; RESP 18; TEMP 96.6; O2SAT 97
[2016-12-16] MEDS ORDERED: LEVOFLOXACIN 750 MG PREMIX INJ 150 ML IV SCH (09:00)
[2016-12-16] MEDS: GABAPENTIN 100 MG CAP PO SCH ×4 (09:32→20:59)
[2016-12-16] MEDS: LITHIUM CARBONATE 450 MG CONTROLLED RELEASE TAB PO SCH ×2 (09:32→20:59)
[2016-12-16] MEDS: METOPROLOL TARTRATE 25 MG TAB PO SCH ×2 (09:32→21:00)
[2016-12-16] MEDS: FERROUS SULFATE 325 MG (65 MG ELEMENTAL IRON) TAB PO SCH ×2 (09:32→20:59)
[2016-12-16] MEDS: ESCITALOPRAM OXALATE 10 MG TAB PO SCH (09:32)
[2016-12-16] MEDS: ASPIRIN EC 81 MG TABEC PO SCH (09:32)
[2016-12-16] MEDS: FLUCONAZOLE 200 MG TAB PO SCH (09:32)
[2016-12-16] MEDS: SODIUM CHLORIDE 0.9% FLUSH 10 ML FLUSH IV FLUSH SCH ×2 (09:34→20:59)
[2016-12-16] MEDS: DIAZEPAM 10 MG TAB PO PRN (09:40)
[2016-12-16] MEDS: INSULIN DETEMIR 100 UNITS/ML VIAL SQ SCH ×2 (09:40→20:58)
[2016-12-16 12:00] VITALS: BP 136/63; PULSE 59; RESP 18; TEMP 97.8; O2SAT 96
--- NOTE | 2016-12-16 13:17 | PD.ID.CON ---
History of Present Illness Service ID Consult Requested By Richard Reason for Consult DFI Primary Care Physician No Primary Care Physician Diagnoses: History of Present Illness 51 yo female with DM presented on 12/10 with left foot 2 3 metatarsal and calcaneus osteo, plantar ulcer. She is sp 2nd-3 rd digits amputaion for gangrene couple mos ago by Dr Callahan and presented with failure to heal The ulcerations were getting worse over the last 2 mos; she noticed some fould odor along with increasing redness, swelling and drainage She ws taking Levaquine as o/p MRI showed Osteomyelitis involving the second at the end third metatarsals distally as well as the calcaneus S/p Left foot incision bone cortex calcaneus (3 seperate areas) , 2 3 metatarsal head resection, ulcer debridement and wound closure by Dr Avery Meléndez on 12/12 She was initially on zosyn, vancomycin and now is on Levaquin Review of Systems Except as stated in HPI: all other systems reviewed are Neg Past Family Social History Allergies: Coded Allergies: Abilify (Verified Allergy, Severe, 12/10/16) Buspar (Verified Allergy, Severe, Nausea/Vomiting, 12/10/16) Sulfa (Verified Allergy, Unknown, 12/10/16) Benadryl (Verified Adverse Reaction, Severe, 12/10/16) PATIENT STATES." IT HAS OPPOSITE AFFECT. IT MAKES ME SPEEDY, MORE AWAKE. IT MAKES MY SCALP FEEL TINGLY." PATIENT STATES "I DON'T TAKE ANITHISTAMINES BECAUSE THEY HAVE AN OPPOSITE EFFECT THAN WHAT THEY'REV SUPPOSE TO HAVE." Fentanyl (Verified Adverse Reaction, Severe, 12/10/16) hallucications Uncoded Allergies: ALOE VERA (Adverse Reaction, Severe, RASH, 10/01/09) Past Medical History Diabetes, hypertension, hyperlipidemia, coronary artery disease, chronic foot ulcers Past Surgical History Quadruple bypass 2016 Left second digit amputation with incision and drainage of foot Active Ordered Medications Medications where reviewed in EMR Antibiotics Include: Levaquin Family History Hypertension Social History Smoking currently 4- 5 cigarettes per day used to smoke 1 pack per day NO alcohol or illicit drug use homeless Physical Exam Vital Signs Vital Signs Date Time Temp Pulse Resp B/P Pulse Ox O2 Delivery O2 Flow Rate FiO2 12/16/16 08:00 96.6 60 18 162/75 97 12/16/16 04:10 16 12/16/16 00:00 97.4 68 17 150/72 98 12/15/16 20:00 97.0 58 17 171/76 98 12/15/16 16:00 96.3 68 16 160/65 95 Physical Exam CONSTITUTIONAL/GENERAL: This is an adequately nourished patient, in no apparent distress. TUBES/LINES/DRAINS: SKIN: No jaundice, rashes, or lesions. Skin temperature appropriate. Not diaphoretic. HEAD: Atraumatic. Normocephalic. EYES: Pupils equal and round and reactive. Extraocular motions intact. No scleral icterus. No injection or drainage. Fundi not examined. ENT: Hearing grossly normal. Nose without bleeding or purulent drainage. Throat without visible erythema, exudates, masses, or lesions. NECK: Trachea midline. Supple, nontender. CARDIOVASCULAR: Regular rate and rhythm without murmurs, gallops, or rubs. No JVD. Peripheral pulses symmetric. RESPIRATORY/CHEST: Symmetric, unlabored respirations. Clear to auscultation. Breath sounds equal bilaterally. No wheezes, rales, or rhonchi. GASTROINTESTINAL: Abdomen soft, non-tender, nondistended. No hepato-splenomegaly , or palpable masses. No guarding. Bowel sounds present. GENITOURINARY: Without palpable bladder distension. MUSCULOSKELETAL: Extremities without clubbing, cyanosis, or edema. L foot with sp amputations of 2-3 digits incisions x 3 - over 2-3 metatarsal, plantar and heel - clean and well approximated with minimal serosang dc + mild erythema and fullness of mid foot not tender to palpation LYMPHATICS: No palpable cervical or supraclavicular adenopathy. NEUROLOGICAL: Awake and alert. Motor and sensory grossly within normal limits. Follows commands. Cognitively sharp. Moves all extremities. PSYCHIATRIC: No obvious anxiety/depression. no apparent hallucinations or other psychotic thought process. Laboratory Laboratory Tests Test 12/16/16 05:30 Vancomycin Level Trough 20.1 Date/Time Procedure Status Source Growth 12/12/16 10:08 Gram Stain - Final Complete Wound Bone 12/12/16 10:08 Wound Culture - Final Complete Wound Bone NO GROWTH IN 72 HRS.--AEROBICALLY OR ... 12/12/16 10:08 Fungal Smear - Final Resulted Wound Bone NO FUNGAL ELEMENTS SEEN. 12/12/16 10:08 Fungal Culture Resulted Wound Bone Pending 12/12/16 10:08 Acid Fast Stain - Final Resulted Wound Bone NO ACID FAST BACILLI SEEN 12/12/16 10:08 Mycobacterial Culture Resulted Wound Bone Pending Result Diagram: 12/15/16 0555 12/15/16 0555 Imaging Last Impressions Foot X-Ray 12/10/16 0000 Signed Impressions: Service Date/Time: Saturday, December 10, 2016 15:47 - CONCLUSION: 1. Evidence for a previous surgery. 2. Osteomyelitis distal second metatarsal cannot be excluded. Francisco Torres MD FACR Foot MRI 12/10/16 0000 Signed Impressions: Service Date/Time: Saturday, December 10, 2016 20:00 - CONCLUSION: Osteomyelitis involving the second at the end third metatarsals distally as well as the calcaneus. Christofer Dunbar MD Assessment and Plan Assessment and Plan DFI, osteomyelitis of 2-3 metatarsals Left foot per dw Dr Callahan: Sep 2016: GBS, PSAE (S to levaquine) Sep 2016: NG December 09 Stenotrophomonas S TS (no other agents tested) No osteo in [place] Growing Stenotrophomonas in surface culture and no growth in biopsy Poorly controlled DM Sulfa allergy in the form of hives - cont po levaquine for several mos - fu with ID as o/p with therapy targets including: clinical resolution and normalisation of ESR, CRP - fu with podiatry - - Discussed Condition With Sindy Hardin Alexandra A. MD December 16, 2016 13:17
--- NOTE | 2016-12-16 13:50 | HHI.PR ---
Subjective Remarks Follow-up diabetic foot infection and diabetes mellitus. Pathology shows also melitis involving the second and third metatarsal. Erratic fingersticks. Discussed with infectious disease and RN Objective Vitals Vital Signs Date Time Temp Pulse Resp B/P Pulse Ox O2 Delivery O2 Flow Rate FiO2 12/16/16 12:00 97.8 59 18 136/63 96 12/16/16 08:00 96.6 60 18 162/75 97 12/16/16 04:10 16 12/16/16 00:00 97.4 68 17 150/72 98 12/15/16 20:00 97.0 58 17 171/76 98 12/15/16 16:00 96.3 68 16 160/65 95 I/O 12/15/16 12/15/16 12/15/16 12/16/16 12/16/16 12/16/16 07:00 15:00 23:00 07:00 15:00 23:00 Intake Total 812 ml 1032 ml 600 ml 1790 ml 937 ml Balance 812 ml 1032 ml 600 ml 1790 ml 937 ml Intake Oral 600 ml 240 ml IV Total 812 ml 1032 ml 1550 ml 937 ml # Voids 3 2 Result Diagram: 12/15/16 0555 12/15/16 0555 Imaging Last Impressions Foot X-Ray 12/10/16 0000 Signed Impressions: Service Date/Time: Saturday, December 10, 2016 15:47 - CONCLUSION: 1. Evidence for a previous surgery. 2. Osteomyelitis distal second metatarsal cannot be excluded. Francisco Torres MD FACR Foot MRI 12/10/16 0000 Signed Impressions: Service Date/Time: Saturday, December 10, 2016 20:00 - CONCLUSION: Osteomyelitis involving the second at the end third metatarsals distally as well as the calcaneus. Christofer Dunbar MD Objective Remarks GENERAL: This is a well-nourished, well-developed patient, in no apparent distress. SKIN: No rashes, ecchymoses or lesions. Cool and dry. HEAD: Atraumatic. Normocephalic. No temporal or scalp tenderness. EYES: Pupils equal round and reactive. Extraocular motions intact. No scleral icterus. No injection or drainage. ENT: Nose without bleeding, purulent drainage or septal hematoma. Throat without erythema, tonsillar hypertrophy or exudate. Uvula midline. Airway patent. NECK: Trachea midline. No JVD or lymphadenopathy. Supple, nontender, no meningeal signs. CARDIOVASCULAR: Regular rate and rhythm without murmurs, gallops, or rubs. RESPIRATORY: Clear to auscultation. Breath sounds equal bilaterally. No wheezes , rales, or rhonchi. GASTROINTESTINAL: Abdomen soft, non-tender, nondistended. No guarding. MUSCULOSKELETAL: Left foot is wrapped. Vascular intact. Negative Homans sign bilaterally. NEUROLOGICAL: Awake and alert. Cranial nerves II through XII intact. Motor and sensory grossly within normal limits. Five out of 5 muscle strength in all muscle groups. Normal speech. Procedures S/P Left foot incision bone cortex calcaneus (3 seperate areas) , 2 3 metatarsal head resection, ulcer debridement and wound closure on 12/12/[address] Church podiatry A/P Problem List: (1) Insulin-requiring or dependent type II diabetes mellitus ICD Code: E11.9 Status: Acute (2) Wound, open, foot ICD Code: S91.309A Status: Acute Assessment and Plan 51-year-old female with Diabetic foot possible osteomyelitis. Left foot ulcer with OM 2 3 metatarsal Culture with Stenotrophomonas maltophilia. Discontinue Zosyn and vancomycin IV and switched to IV level S/P Left foot incision bone cortex calcaneus (3 seperate areas) , 2 3 metatarsal head resection, ulcer debridement and wound closure on 12/12/[address] Church podiatry MRI is concerning for near entire involvement of the calcaneus as well distal metatarsals. BKA is the likely best option local company [employer] truck [employer] for the patient per podiatry. Patient wished to not go for BKA but understands may be needed. Hold plavix for surgery restart when OK per surgeon. Depending on biopsy result and improvement over 2-3 days patient might need BKA per podiatry. We'll follow up final recommendations ADRIANA : Start IVF as patient with worsening kidney function. Monitor kidney function. Avoid nephrotoxins. Improving Coronary artery disease status post CABG. Continue home medications. She is taking Plavix and aspirin, podiatry to decide when to restart Plavix Hypertension. Uncontrolled. Restart home medications. Monitor and increase dose of home medications if needed. Vasotec IV as needed when necessary. Hydralazine by mouth as needed. Improving Diabetes mellitus insulin-dependent, uncontrolled, A1c 8.8. Diabetes is uncontrolled. Erratic. Insulin sliding scale, Accu-Cheks. Continue detemir insulin 12 units bid. Monitor and adjust as need. Discussed with RN Hyperlipidemia. Continue statin Depression / anxiety now unstable. Restart home meds . Add ativan for anxiety/. Consulted psych DVT prophylaxis Lovenox Discharge Planning Patient with diabetic foot wound, might need BKA, pending results of biopsy , Dr Church will give final recommendations for BKA when biopsy results are in. ID to give recommendations at [place] for ABX. Patient has no payor source for outpatient IV antibiotic or SNF. She will likely need home health care PT versus SNF. Also needs wheeled walker and wheelchair with removable legs per PT Problem Qualifiers (1) Wound, open, foot: Qualified Code: S91.302D - Wound, open, foot, left, subsequent encounter Dino Hernandez MD December 16, 2016 13:50
[2016-12-16] MEDS ORDERED: WHEEMIS3 (16:11)
[2016-12-16] MEDS ORDERED: WALKER WHEELS/F1 MIS (16:11)
[2016-12-16] MEDS ORDERED: OXYC-395 PO (16:16)
[2016-12-16] MEDS ORDERED: DIAZ10 PO (16:16)
--- NOTE | 2016-12-16 16:24 | HHI.DCPOC ---
Discharge Care Plan Diagnosis: (1) Insulin-requiring or dependent type II diabetes mellitus Your Health Problems Are: Difficulty with ADL Exercise Tolerance Goals to Promote Your Health * To prevent worsening of your condition and complications * To maintain your health at the optimal level Directions to Meet Your Goals Take your medications as prescribed Follow your dietary instruction Follow activity as directed Keep your appointments as scheduled Take your immunizations and boosters as scheduled If your symptoms worsen call your PCP, if no PCP go to Urgent Care Center or Emergency Room Smoking is Dangerous to Your Health. Avoid second hand smoke Call the 24-hour hour crisis hotline for domestic abuse at Dino Hernandez MD December 16, 2016 16:24
[2016-12-16] MEDS ORDERED: LEVA750T PO (16:30)
[2016-12-16] MEDS: ENOXAPARIN SODIUM 40 MG/0.4 ML SYRINGE SQ SCH (17:12)
[2016-12-16 20:00] VITALS: BP 180/80; PULSE 59; RESP 20; TEMP 96.6; O2SAT 98
[2016-12-16] MEDS: ATORVASTATIN 40 MG TAB PO SCH (20:59)
[2016-12-17] VITALS: BP 161/78; PULSE 64; RESP 20; TEMP 96; O2SAT 97
[2016-12-17 04:00] VITALS: BP 152/69; PULSE 64; RESP 20; TEMP 97.3; O2SAT 98
[2016-12-17] MEDS: LEVOTHYROXINE SODIUM 50 MCG TAB PO SCH (05:41)
[2016-12-17] MEDS: DOCUSATE SODIUM 100 MG CAP PO SCH (05:41)
[2016-12-17] MEDS: INSULIN ASPART SUPPLEMENTAL SCALE SQ SCH ×3 (05:58→11:37)
[2016-12-17 08:00] VITALS: BP 160/82; PULSE 59; RESP 18; TEMP 97; O2SAT 97
[2016-12-17] MEDS ORDERED: LEVOFLOXACIN 750 MG TAB PO SCH (09:00)
[2016-12-17] MEDS ORDERED: INSULIN DETEMIR 100 UNITS/ML VIAL SQ SCH (09:00)
[2016-12-17] MEDS: SODIUM CHLOR 0.9% 1000 ML INJ 1,000 ML IV SCH (09:22)
[2016-12-17] MEDS: GABAPENTIN 100 MG CAP PO SCH ×2 (09:23→11:38)
[2016-12-17] MEDS: DIAZEPAM 10 MG TAB PO PRN (09:23)
[2016-12-17] MEDS: FLUCONAZOLE 200 MG TAB PO SCH (09:23)
[2016-12-17] MEDS: ASPIRIN EC 81 MG TABEC PO SCH (09:24)
[2016-12-17] MEDS: METOPROLOL TARTRATE 25 MG TAB PO SCH (09:24)
[2016-12-17] MEDS: FERROUS SULFATE 325 MG (65 MG ELEMENTAL IRON) TAB PO SCH (09:24)
[2016-12-17] MEDS: ESCITALOPRAM OXALATE 10 MG TAB PO SCH (09:24)
[2016-12-17] MEDS: LITHIUM CARBONATE 450 MG CONTROLLED RELEASE TAB PO SCH (09:24)
[2016-12-17] MEDS: SODIUM CHLORIDE 0.9% FLUSH 10 ML FLUSH IV FLUSH SCH (09:31)
--- NOTE | 2016-12-17 10:04 | HHI.PR ---
Subjective Remarks Follow-up osteomyelitis. Discussed with ID okay for discharge on Levaquin daily for 3 months. Discussed with case management no need for visiting nurse as patient will not require dressing changes at home per podiatry. Patient to remain not weightbearing and will have outpatient physical therapy. Patient states she is not homeless. Objective Vitals Vital Signs Date Time Temp Pulse Resp B/P Pulse Ox O2 Delivery O2 Flow Rate FiO2 12/17/16 08:00 97.0 59 18 160/82 97 12/17/16 04:00 97.3 64 20 152/69 98 12/17/16 00:00 96.0 64 20 161/78 97 12/16/16 20:00 96.6 59 20 180/80 98 12/16/16 12:00 97.8 59 18 136/63 96 I/O 12/16/16 12/16/16 12/16/16 12/17/16 12/17/16 12/17/16 07:00 15:00 23:00 07:00 15:00 23:00 Intake Total 1790 ml 937 ml 240 ml 2074 ml Output Total 350 ml 400 ml Balance 1790 ml 937 ml -110 ml 1674 ml Intake Oral 240 ml 240 ml 480 ml IV Total 1550 ml 937 ml 1594 ml Output Urine Total 350 ml 400 ml # Voids 2 3 # Bowel Movements 1 Result Diagram: 12/15/16 0555 12/15/16 0555 Imaging Last Impressions Foot X-Ray 12/10/16 0000 Signed Impressions: Service Date/Time: Saturday, December 10, 2016 15:47 - CONCLUSION: 1. Evidence for a previous surgery. 2. Osteomyelitis distal second metatarsal cannot be excluded. Francisco Torres MD FACR Foot MRI 12/10/16 0000 Signed Impressions: Service Date/Time: Saturday, December 10, 2016 20:00 - CONCLUSION: Osteomyelitis involving the second at the end third metatarsals distally as well as the calcaneus. Christofer Dunbar MD Objective Remarks GENERAL: This is a well-nourished, well-developed patient, in no apparent distress. SKIN: No rashes, ecchymoses or lesions. Cool and dry. HEAD: Atraumatic. Normocephalic. No temporal or scalp tenderness. EYES: Pupils equal round and reactive. Extraocular motions intact. No scleral icterus. No injection or drainage. ENT: Nose without bleeding, purulent drainage or septal hematoma. Throat without erythema, tonsillar hypertrophy or exudate. Uvula midline. Airway patent. NECK: Trachea midline. No JVD or lymphadenopathy. Supple, nontender, no meningeal signs. CARDIOVASCULAR: Regular rate and rhythm without murmurs, gallops, or rubs. RESPIRATORY: Clear to auscultation. Breath sounds equal bilaterally. No wheezes , rales, or rhonchi. GASTROINTESTINAL: Abdomen soft, non-tender, nondistended. No guarding. MUSCULOSKELETAL: Left foot is wrapped. Vascular intact. Negative Homans sign bilaterally. NEUROLOGICAL: Awake and alert. Cranial nerves II through XII intact. Motor and sensory grossly within normal limits. Five out of 5 muscle strength in all muscle groups. Normal speech. Procedures S/P Left foot incision bone cortex calcaneus (3 seperate areas) , 2 3 metatarsal head resection, ulcer debridement and wound closure on 12/12/[address] Church podiatry A/P Problem List: (1) Insulin-requiring or dependent type II diabetes mellitus ICD Code: E11.9 Status: Acute (2) Wound, open, foot ICD Code: S91.309A Status: Acute Assessment and Plan 51-year-old female with Diabetic foot possible osteomyelitis. Left foot ulcer with OM 2 3 metatarsal Culture with Stenotrophomonas maltophilia. Discontinue Zosyn and vancomycin IV and switched to and pO Levaquin per ID S/P Left foot incision bone cortex calcaneus (3 seperate areas) , 2 3 metatarsal head resection, ulcer debridement and wound closure on 12/12/[address] Church podiatry MRI is concerning for near entire involvement of the calcaneus as well distal metatarsals. Per podiatry, okay for discharge Restart plavix ADRIANA : Start IVF as patient with worsening kidney function. Monitor kidney function. Avoid nephrotoxins. Improving Coronary artery disease status post CABG. Continue home medications. She is taking Plavix and aspirin Hypertension. Uncontrolled. Restart home medications. Monitor and increase dose of home medications if needed. Vasotec IV as needed when necessary. Hydralazine by mouth as needed. Improving Diabetes mellitus insulin-dependent, uncontrolled, A1c 8.8. Diabetes is uncontrolled. Continue Insulin sliding scale, Accu-Cheks. Increase detemir insulin to 15 units bid. Monitor and adjust as need. Discussed with RN Hyperlipidemia. Continue statin Depression / anxiety now unstable. Restart home meds . Add ativan for anxiety/. Consulted psych DVT prophylaxis Lovenox Discharge Planning Stable for discharge Problem Qualifiers (1) Wound, open, foot: Qualified Code: S91.302D - Wound, open, foot, left, subsequent encounter Dino Hernandez MD December 17, 2016 10:04
--- NOTE | 2016-12-17 10:08 | HHI.FF ---
Face to Face Verification Diagnosis: (1) Wound, open, foot Physical Therapy Order: Evaluate and Treat, Improve ambulation, Strength and gait training Home Health Nursing Order: Medical education Medication education-adverse effect Wound care and dressing changes Nursing assessment with vital signs I have seen patient Shadia Maddox on 12/17/16. My clinical findings support the need for the requested home health care services because: Deconditioned w/ increased weakness I certify that my clinical findings support that this patient is homebound because: Unsteady gait/balance Dino Hernandez MD December 17, 2016 10:08
[2016-12-17 12:00] VITALS: BP 179/86; PULSE 62; RESP 16; TEMP 96.6; O2SAT 96
[2016-12-17] MEDS: MAGNESIUM HYDROXIDE SUSP 30 ML CUP PO PRN (14:12)
--- NOTE | 2016-12-17 16:44 | HHI.DS ---
Discharge Summary Admission Date December 10, 2016 at 16:45 Discharge Date: December 17, 2016 Admitting Diagnosis Diabetic L Foot Wound; Poss L Foot Osteo (1) Insulin-requiring or dependent type II diabetes mellitus ICD Code: E11.9 Diagnosis: Principal (2) Wound, open, foot ICD Code: S91.309A Diagnosis: Principal Procedures S/P Left foot incision bone cortex calcaneus (3 seperate areas) , 2 3 metatarsal head resection, ulcer debridement and wound closure on 12/12/[address] Church podiatry Brief History - From Admission 51-year-old female with past medical history of diabetes, hypertension, CAD, hyperlipidemia, chronic foot ulcers, probably noncompliant with medications into the emergency room for evaluation of left foot diabetic ulcers getting for the last 2 months . She also reports associated fevers. Follows with podiatry as outpatient and she is also taking Levaquin by mouth. Since pain is worse since yesterday, she noticed some discharge the third digit of the left foot, also order is worse. She has undergone amputation of the second and third digits of the left foot evidently due to osteomyelitis and cellulitis previously. In the middle portion of the left foot there is an open wound draining some clear discharge and surrounded by fibrinous exudate. The wounds are tender. She's had no fever. She states the pain is 10 over 10. Amputations were done by a photographic reproduction technician in [place]. Similar prior episodes led to a diagnosis of osteomyelitis. Denies chest pain, shortness of breath, nausea, diaphoresis, lightheadedness, patient's. No abdominal pain. Has normal bowel movements. CBC/BMP: 12/15/16 0555 12/15/16 0555 Significant Findings Laboratory Tests Test 12/15/16 12/16/16 12/16/16 05:55 05:30 07:35 Red Blood Count 3.51 MIL/MM3 (4.00-5.30) Hemoglobin 10.2 GM/DL (11.6-15.3) Hematocrit 30.6 % (35.0-46.0) Monocytes (%) (Auto) 8.7 % (0.0-8.0) Eosinophils (%) (Auto) 4.4 % (0.0-4.0) Estimat Glomerular Filtration 60 ML/MIN (>89) Rate Random Glucose 293 MG/DL (74-106) Vancomycin Level Trough 20.1 MCG/ML (5.0-10.0) Erythrocyte Sedimentation Rate 64 mm/hr (0-30) C-Reactive Protein 2.10 MG/DL (0.00-0.30) Imaging Last Impressions Foot X-Ray 12/10/16 Signed Impressions: Service Date/Time: Saturday, December 10, 2016 15:47 - CONCLUSION: 1. Evidence for a previous surgery. 2. Osteomyelitis distal second metatarsal cannot be excluded. Francisco Torres MD FACR Foot MRI 12/10/16 Signed Impressions: Service Date/Time: Saturday, December 10, 2016 20:00 - CONCLUSION: Osteomyelitis involving the second at the end third metatarsals distally as well as the calcaneus. Christofer Dunbar MD PE at Discharge GENERAL: This is a well-nourished, well-developed patient, in no apparent distress. SKIN: No rashes, ecchymoses or lesions. Cool and dry. HEAD: Atraumatic. Normocephalic. No temporal or scalp tenderness. EYES: Pupils equal round and reactive. Extraocular motions intact. No scleral icterus. No injection or drainage. ENT: Nose without bleeding, purulent drainage or septal hematoma. Throat without erythema, tonsillar hypertrophy or exudate. Uvula midline. Airway patent. NECK: Trachea midline. No JVD or lymphadenopathy. Supple, nontender, no meningeal signs. CARDIOVASCULAR: Regular rate and rhythm without murmurs, gallops, or rubs. RESPIRATORY: Clear to auscultation. Breath sounds equal bilaterally. No wheezes , rales, or rhonchi. GASTROINTESTINAL: Abdomen soft, non-tender, nondistended. No guarding. MUSCULOSKELETAL: Left foot is wrapped. Vascular intact. Negative Homans sign bilaterally. NEUROLOGICAL: Awake and alert. Cranial nerves II through XII intact. Motor and sensory grossly within normal limits. Five out of 5 muscle strength in all muscle groups. Normal speech. Hospital Course 51-year-old female with Diabetic foot possible osteomyelitis. Left foot ulcer with OM 2 3 metatarsal Culture with Stenotrophomonas maltophilia. Discontinue Zosyn and vancomycin IV and switched to and pO Levaquin per ID S/P Left foot incision bone cortex calcaneus (3 seperate areas) , 2 3 metatarsal head resection, ulcer debridement and wound closure on 12/12/[address] Church podiatry MRI is concerning for near entire involvement of the calcaneus as well distal metatarsals. Per podiatry, okay for discharge Restart plavix ADRIANA : Start IVF as patient with worsening kidney function. Monitor kidney function. Avoid nephrotoxins. Improving Coronary artery disease status post CABG. Continue home medications. She is taking Plavix and aspirin Hypertension. Uncontrolled. Restart home medications. Monitor and increase dose of home medications if needed. Vasotec IV as needed when necessary. Hydralazine by mouth as needed. Improving Diabetes mellitus insulin-dependent, uncontrolled, A1c 8.8. Diabetes is uncontrolled. Continue Insulin sliding scale, Accu-Cheks. Increase detemir insulin to 15 units bid. Monitor and adjust as need. Discussed with RN Hyperlipidemia. Continue statin Depression / anxiety now unstable. Restart home meds . Add ativan for anxiety/. Consulted psych DVT prophylaxis Lovenox Pt Condition on Discharge: Stable Discharge Disposition: Disch w/ Home Health Serv Discharge Time: > 30 minutes Discharge Instructions DIET: Follow Instructions for: Heart Healthy Diet Activities you can perform: Regular-No Restrictions Activities to Avoid: Driving Other Activity Instructions: NWB RLE Follow up Referrals: Podiatry - 3-5 Days with Avery Church DPM New Medications: Walker with Front Wheels (Walker with Front Wheels) 1 Mis Mis 1 EA .ROUTE DIRECTED #1 Ref 0 EA Wheelchair (Wheelchair) 1 Mis Mis 1 EA .ROUTE DIRECTED #1 Ref 0 EA Diazepam (Valium) 10 Mg Tab 10 MG PO DAILY PRN ANXIETY/PANIC #7 TAB Levofloxacin (Levaquin) 750 Mg Tab 750 MG PO DAILY Infection #90 TAB Oxycodone (Oxycodone) 10 Mg Tab 10 MG PO Q6HR PRN pain 5-10 #28 TAB Continued Medications: Aspirin DR (Aspirin Adult Low Strength) 81 Mg Tabdr 81 MG PO DAILY TAB Atorvastatin (Lipitor) 40 Mg Tab 40 MG PO HS Cholesterol Management #30 Ref 0 TAB Clopidogrel (Plavix) 75 Mg Tab 75 MG PO DAILY Blood Clot Prevention #30 Ref 0 TAB Docusate Sodium (Colace) 100 Mg Cap 100 MG PO BID Constipation #60 Ref 0 CAP Escitalopram (Lexapro) 10 Mg Tab 10 MG PO DAILY #30 Ref 0 TAB Ferrous Sulfate (Ferrous Sulfate) 325 Mg Tab 325 MG PO BID ANEMIA #30 Ref 0 TAB Fluconazole (Diflucan) 200 Mg Tab 200 MG PO DAILY Infection Ref 0 TAB Gabapentin (Gabapentin) 100 Mg Cap 200 MG PO QID #90 Ref 0 CAP Insulin Human Isophane-Regular 70-30 Inj (Novolin 70-30 Inj) 1,000 Unit/10 Ml Vial 15 UNITS SQ HS Blood Sugar Management Ref 0 ML Insulin Human NPH Inj (Humulin N Inj) 1,000 Unit/10 Ml Vial 30 UNITS SQ DAILY Blood Sugar Management #10 Ref 0 ML Levothyroxine (Levothyroxine) 50 Mcg Tab 50 MCG PO DAILY Thyroid #30 Ref 0 TAB [place] Carbonate ER ([place] Carbonate ER) 450 Mg Tab 450 MG PO BID Bipolar Depression Ref 0 TAB Metoprolol Tartrate (Metoprolol Tartrate) 25 Mg Tab 12.5 MG PO BID #60 Ref 0 TAB [place] 3 Fatty Acids-[place] 6 FA ([place]-3-6-9) 1 Cap Cap 1 CAP PO TID Dino Hernandez MD December 17, 2016 16:44
== END 2016-12-17 15:58 | disposition home or self-care (01) | DRG 623 ==
LOC: NEPC 13:10 → NEDA 16:45 → N07B 19:07
PROVIDERS: ADMIT Internal Medicine; ATTEND Internal Medicine
PROC: 0JBR0ZZ Excision of Left Foot Subcutaneous Tissue and Fascia, Open Approach (ICD-10-PCS; 2016-12-12)
PROC: 0QBM0ZX Excision of Left Tarsal, Open Approach, Diagnostic (ICD-10-PCS; 2016-12-12)
PROC: 0QBP0ZX Excision of Left Metatarsal, Open Approach, Diagnostic (ICD-10-PCS; principal; 2016-12-12 09:32)
DX: E11.69 Type 2 diabetes mellitus with other specified complication (principal); M86.672 Other chronic osteomyelitis, left ankle and foot; N17.9 Acute kidney failure, unspecified; E11.42 Type 2 diabetes mellitus with diabetic polyneuropathy; E11.621 Type 2 diabetes mellitus with foot ulcer; E11.65 Type 2 diabetes mellitus with hyperglycemia; L97.429 Non-pressure chronic ulcer of left heel and midfoot with unspecified severity; L97.529 Non-pressure chronic ulcer of other part of left foot with unspecified severity; I25.10 Atherosclerotic heart disease of native coronary artery without angina pectoris; F32.9 Major depressive disorder, single episode, unspecified; B96.89 Other specified bacterial agents as the cause of diseases classified elsewhere; F25.0 Schizoaffective disorder, bipolar type; F06.4 Anxiety disorder due to known physiological condition; E78.5 Hyperlipidemia, unspecified; F17.210 Nicotine dependence, cigarettes, uncomplicated; I10 Essential (primary) hypertension; Z95.1 Presence of aortocoronary bypass graft; Z88.8 Allergy status to other drugs, medicaments and biological substances; Z88.2 Allergy status to sulfonamides; Z79.4 Long term (current) use of insulin
CPT/HCPCS: 73630; 73720; 76937; 80048; 80053; 80061; 80202; 82947; 82948; 83036; 83735; 85025; 85652; 86140; 87015; 87040; 87070; 87077; 87102; 87116; 87186; 87205; 87206; 88304; 88305; 88307; 88311; 93005; 96361; 96365; A9579; J0131; J1650; J1815; J1956; J2250; J2270; J2405; J2543; J3370; J7030; J7050; J7120